=== PATIENT | female | born 1960 | race Caucasian/White ===

== ENCOUNTER 2019-03-25 08:39 | Emergency (ER) | payer OTHER, SELFPAY ==
[2019-03-25 08:40] VITALS: BP 155/89; BP 184/76; PULSE 85; PULSE 88; RESP 16; RESP 18; TEMP 36.2; O2SAT 96; O2SAT 97; BMI 33.2
--- NOTE | 2019-03-25 08:55 | ED.VISSUMM ---
- ER Visit Summary Date of Service: 03/25/19 Chief Complaint: Accidentally took an extra dose of her blood pressure medication History of Present Illness: The patient is a 58 F. Lisinopril 20 mg a day. Took her normal dose this morning had forgotten accidentally took a second dose. Physical Examination: Well-appearing middle-aged female. Vital signs are stable initial blood pressure initially high at 184/76. Heart rate 85. No distress. HEENT exam unremarkable. Moist mucous membranes. Neck nontender. Lungs clear to auscultation bilaterally. Heart regular rhythm no murmur. Abdomen is soft and nontender. Normal bowel sounds no peritoneal signs. Moving all 4 extremities. Calves are nontender without edema. Neurologically she is awake and alert with no focal motor deficits. 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 Normal dorsi plantar flexion. NIH score is 0. Test Results: Orthostatic vital signs are unremarkable. Emergency Department Course and Treatment: Clinically patient looks well. She will be observed in the ER with frequent blood pressure checks. Repeat exam patient is doing well her most recent blood pressure was 136/65. Treatment Plan: Return if any problems. Watch her blood pressure. Disposition: Discharge Impression: Accidental extra dose of blood pressure medication taken This note was generated with [employer] dictation software. It may contain incorrect words, spelling, and punctuation that were not noted in review of the chart prior to signing ED Disposition - Plan for ED Patient: Disposition: Home or Assisted Living Referrals: [facility] Doctor,Out of [Primary Care Provider] - As Needed Additional Instructions: Watch blood pressure today. Make sure you are drinking plenty of fluids. Return to ER if your blood pressure falls below 100.
--- NOTE | 2019-03-25 09:00 | ED.DEP ---
ED Disposition - Plan for ED Patient: Disposition: Home or Assisted Living Referrals: [facility],Out of [Primary Care Provider] - As Needed Additional Instructions: Watch blood pressure today. Make sure you are drinking plenty of fluids. Return to ER if your blood pressure falls below 100.
[2019-03-25 09:07] VITALS: BP 153/70; BP 153/79; BP 157/80; PULSE 78; PULSE 87; PULSE 91
[2019-03-25 09:58] VITALS: BP 136/65; PULSE 78; RESP 18; O2SAT 99
[2019-03-25 10:31] VITALS: BP 146/79; PULSE 78; RESP 19; O2SAT 99
== END 2019-03-25 10:31 | disposition home or self-care (01) ==
PROVIDERS: Emergency Provider Emergency Medicine
DX: T46.4X1A Poisoning by angiotensin-converting-enzyme inhibitors, accidental (unintentional), initial encounter (principal); Y92.9 Unspecified place or not applicable; I10 Essential (primary) hypertension; Z79.899 Other long term (current) drug therapy
CPT/HCPCS: 99284

== ENCOUNTER 2021-01-04 17:00 | Outpatient (RCR) | payer OTHER, SELFPAY ==
[2020-03-16 11:51] VITALS: BMI 33.6
--- NOTE | 2021-01-18 14:18 | HP.PT.NRP ---
STEPHY Nael RUBIO was seen in my office for initial evaluation on . The following Plan of Care was established for this patient: This patient was last seen in our office . Pertinent comments regarding their Physical therapy will appear below: Dry Needling- self pay At this point I will be discontinuing this patient from physical therapy. I would be happy to see this patient again in the future if found appropriate by the physician. Thank you! KRISTINE HoskinsT
== END 2021-01-04 19:00 | disposition home or self-care (01) ==
LOC: PT 17:00
DX: R69 Illness, unspecified (principal)

== ENCOUNTER → 2021-01-25 16:39 | Outpatient (CLI) | payer OTHER, SELFPAY ==
[2020-03-16 11:51] VITALS: BMI 33.6
--- NOTE | 2021-01-25 16:41 | RAD_ITS ---
STUDY: X-RAY - PELVIS AND RIGHT HIP REASON FOR EXAM: Right hip pain. TECHNIQUE: 2 views of the pelvis and hip. COMPARISON: None. FINDINGS: Normal visualized soft tissue structures. There is mild enthesopathy of the right iliac wing. Otherwise, unremarkable bilateral iliac wings, sacroiliac joints and visualized sacrum. Normal bilateral superior and inferior pubic rami. Normal pubic symphysis. Normal bilateral ischial tuberosities. There are small marginal osteophytes of the right femoral head, severe joint space narrowing of the right hip joint and subchondral eburnation of the right superior femoral head and adjacent acetabulum. There are also degenerative changes of the left hip joint. RAD/HIP, UNI W/ Pelvis 2-3 Views IMPRESSION: Right hip arthrosis. Electronically Signed: Kamaljit Bryant MD at 15:00 EDT Tel , Service support ,
--- NOTE | 2021-01-25 16:41 | RAD_ITS ---
STUDY: X-RAY - LUMBAR SPINE REASON FOR EXAM: Female, 60 years old. Back pain TECHNIQUE: 5 view(s) of the lumbar spine were obtained. COMPARISON: None FINDINGS: Normal lumbar lordosis. Mild levoscoliosis centered at L3. 5 mm of anterolisthesis of L4 on L5. There is multilevel endplate spondylosis of the lumbar vertebrae. There is multi-level degenerative disc disease with multi-level disc space narrowing. The soft tissue structures are unremarkable. RAD/L/S Spine Min 4 Views IMPRESSION: Mild levoscoliosis with diffuse degenerative disc disease in 5 mm of anterolisthesis of L4 on L5. Electronically Signed: Flash Lawton MD at 13:30 EDT Tel , Service support ,
== END ==
PROVIDERS: PCP Student in an Organized Health Care Education/Training Program; Referring Provider Chiropractor; Visit Provider Chiropractor
DX: M25.551 Pain in right hip (principal); M99.03 Segmental and somatic dysfunction of lumbar region
CPT/HCPCS: 72110; 73502

== ENCOUNTER 2021-01-26 16:30 | Outpatient (RCR) | payer OTHER, SELFPAY ==
[2020-03-16 11:51] VITALS: BMI 33.6
--- NOTE | 2021-01-07 18:18 | HP.PTEVAL ---
Patient's Visit Information STEPHY RUBIO is a 60 year old F referred to Physical Therapy by Dr. Jama Nascimento DO with a diagnosis of hip pain. Date of Evaluation: 01/07/21 Physical Therapist: Saman Rebollar, ZAIRE, OCS, CSCS - Visit Plan Frequency: 2x /Week Duration: 4 Weeks Plan: soft tissue to piriformis. increase hip and core strength, improve balance, improve flexibility. IE HEP: bridges, seated piriformis stretch - Subjective Pt reports over the summer she was lifting rock with at heard, and may have aggrevated it more. Pt reports that she has to lift leg into car. Has been going on for a while (years and year). cortizone shot a long time ago and doesnt think it helped. Pt reports that she does yoga at night and that seems to help. Pt has 4 flights of stairs in her house and that can aggrate it. She tries to roll on roller but doesnt seem to help. Pt does massage therapy every 2-3 weeks. got it done this monday. goes to chiropractor. pt believes dry needling is not helping. Pain: 7/10 all day today. shooting sharp pain. Pt reports pain in R hip radiates into groin and knee. allevaties: 3-4/10 sitting, laying on stomach. worse: 9-10/10 walking long distances, biking, stairs if she does it a lot. sleep: stomach sleeper, hurts if she is laying on side, some trouble. meds: ibuprophen (some relief). PMHx: high BP and cholestrol, hestroctomy (had to rehab after d/t being on table for too long and unable to walk- 20 years ago). 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 palpation: painful along IT band and piriformis R. stairs: recip with 1 HR, slight increase in pain with ascending. HR/TR: able without pain. SLS: 3 seconds on R side. Gait: R+ mild [place]. Strength: hip: flex 4-/5, abd/add: 4/5, ER: 4/5, IR: 4-/5 with pain on R. knee: flex/ext: 4/5 ankle: DF/PF: 4+/5. ROM: hip/knee/ankle: WFL spine: SB/rotation R: WFL with some increase in tightness, flex/ext: WFL. flexiblity: hamstring: moderate, gastro: mild. SHIKHA+, FADER +. Saman Rebollar is supervising therapist during this evaluation and approved all notes and POC - Goals Goal 1:: Pt will be I with HEP and progression Goal Time Frame: 4-6 Weeks Goal 2:: Pt will demonstrate improve R hip strength to 5/5 in order to perform I functional mobility Goal 3:: Pt will demonstrate improve SLS balance to >10 seconds on R LE in order to promote increase stability Goal Time Frame: 4-6 Weeks - Rehabilitation Potential Physical Therapy Diagnosis: Pt presents with decreased strength, balance, flexibilty impacting ability to perform I functional mobility. Rehabilitation Potential: Good - Anticipated Interventions Patient/Client Instruction: Educate patient on: Plan of Care For the Purpose of:: To improve muscle performance and motor function Therapeutic Exercise to Include: Strength training, Endurance training, Balance training, Coordination, Agility training, Body mechanics, Postural training, Flexibilty training, Dynamic Lumbar Stabilization For the Purpose of:: To improve muscle performance and motor function, To improve performance and independence with ADL's IF ES: Yes Cryotherapy (ice pack, ice massage): Yes Thermo therapy (hot pack): Yes Ultrasound (thermal/non thermal): Yes Thank you for the opportunity to evaluate your patient. For Medicare and Medicare HMO plans, please review the plan of care and approve it. It will need to be FAXED BACK to us at [phone] for Medicare purposes. For Medicare only, by signing this I certify the plan of care. Please let me know if there are questions or concerns regarding this plan of care. Physician Signature: Date:
--- NOTE | 2021-02-04 16:12 | HP.PT.NRP ---
STEPHY RUBIO was seen in my office for initial evaluation on 01/07/21. The following Plan of Care was established for this patient: Initial Frequency: 2x /Week Initial Duration: 4 Weeks Patient/Client Instruction: Educate patient on: Plan of Care For the Purpose of:: To improve muscle performance and motor function Therapeutic Exercise to Include: Strength training, Endurance training, Balance training, Coordination, Agility training, Body mechanics, Postural training, Flexibilty training, Dynamic Lumbar Stabilization For the Purpose of:: To improve muscle performance and motor function, To improve performance and independence with ADL's IF ES: Yes Cryotherapy (ice pack, ice massage): Yes Thermo therapy (hot pack): Yes Ultrasound (thermal/non thermal): Yes This patient was last seen in our office . Pertinent comments regarding their Physical therapy will appear below: Patient reports that she is worse and the pain is now radiating further down her leg- sees MD tomorrow- discharge from PT at this time. At this point I will be discontinuing this patient from physical therapy. I would be happy to see this patient again in the future if found appropriate by the physician. Thank you! KRISTINE HoskinsT
== END 2021-01-26 19:00 | disposition home or self-care (01) ==
LOC: PT 16:30
PROVIDERS: PCP Student in an Organized Health Care Education/Training Program; Referring Provider Student in an Organized Health Care Education/Training Program; Visit Provider Student in an Organized Health Care Education/Training Program
DX: M76.891 Other specified enthesopathies of right lower limb, excluding foot (principal); M76.892 Other specified enthesopathies of left lower limb, excluding foot; M25.552 Pain in left hip; M25.551 Pain in right hip
CPT/HCPCS: 97014; 97035; 97110; 97162; 97164; 97530; G0283

== ENCOUNTER → 2021-04-08 07:56 | Outpatient (CLI) | payer OTHER, SELFPAY ==
[2020-03-16 11:51] VITALS: BMI 33.6
--- NOTE | 2021-04-08 08:11 | EKG12_ITS ---
Test Reason : PREOP Blood Pressure : / mmHG Vent. Rate : 084 BPM Atrial Rate : 084 BPM P-R Int : 160 ms QRS Dur : 090 ms QT Int : 378 ms P-R-T Axes : 054 -03 018 degrees QTc Int : 446 ms Somatic/Motion Artifact Normal sinus rhythm Poor R wave progression Confirmed by BLANKA GALVEZ, ROBSON ([id number]), plant control aide CHONG DENNY ([id number]) on 04/09/2021 10:31:38 AM Referred By: Raghavendra Gongora Confirmed By:ROBSON MOSCOSO MD
--- NOTE | 2021-04-08 08:25 | RAD_ITS ---
STUDY: X-RAY CHEST REASON FOR EXAM: Female, 60 years old. PRE OP TECHNIQUE: PA and lateral views of the chest. COMPARISON: None. FINDINGS: The lungs are clear and expanded. There is no demonstrated pleural abnormality. Normal size heart. Normal mediastinum and tate. Normal visualized pulmonary arteries. Normal visualized aortic arch and descending thoracic aorta. Normal visualized thoracic spine. Normal visualized ribs, clavicles, and shoulders. There is no demonstrated abnormality of the visualized soft tissue structures of the upper abdomen. RAD/Chest PA and Lateral IMPRESSION: Normal x-ray examination of the chest. Electronically Signed: Flash Lawton MD at 7:40 EDT Tel , Service support ,
[2021-04-08 09:22] LABS: Hemoglobin 14.4 g/dL (12.0-15.0); Mean Corpuscular Volume 90.5 fL (81-99); Mean Platelet Vol. 10.8 fl (6.2-12.0); Platelet Count 274 K/mm3 (150-450); RBC Distribution Width CV 11.9 % (11.6-14.6); RBC Distribution Width SD 39.7 fl (35.1-43.9); Red Blood Count 4.97 M/mm3 (4.2-5.4); White Blood Count 6.9 K/mm3 (4.4-11.0)
[2021-04-08 09:59] LABS: Anion Gap 4 (5-15); BUN 17 mg/dL (7-18); BUN/Creat Ratio 22.9 RATIO (10-20); Chloride 107 mmol/L (98-107); Creatinine, Serum 0.74 mg/dL (0.55-1.02); EST Glomerular Filtration Rate 84 mL/min (>60); Est Glom Filt Rate - Afr Amer 102 mL/min (>60); Glucose 73 mg/dL (74-106); Potassium 3.9 mmol/L (3.5-5.1); Sodium Level 141 mmol/L (136-145)
== END ==
PROVIDERS: Physician Assistant; PCP Student in an Organized Health Care Education/Training Program; Referring Provider Orthopaedic Surgery; Visit Provider Orthopaedic Surgery
DX: Z20.822 Contact with and (suspected) exposure to COVID-19 (principal); Z01.812 Encounter for preprocedural laboratory examination; Z01.810 Encounter for preprocedural cardiovascular examination; Z01.811 Encounter for preprocedural respiratory examination; I10 Essential (primary) hypertension
CPT/HCPCS: 36415; 71046; 80048; 85027; 87426; 93005; C9803

== ENCOUNTER → 2021-04-16 | Outpatient (CLI) | payer OTHER, SELFPAY ==
[2020-03-16 11:51] VITALS: BMI 33.6
--- NOTE | 2021-04-16 09:00 | HIP_PTH ---
PATIENT: STEPHY RUBIO LOC: [facility] U#:[id number] AGE/SX: 60/F ROOM: RE04/16/[address]: Dr. Raghavendra Gongora MD : 1960 BED: DIS: 04/16/2021 SPEC #: [id number] RECD: 04/16/21 10:01 STATUS: DEJAH REJohn #: [id number] JANET: 04/16/21 09:[address]: Raghavendra Gongora DEPT: SURGICAL PATHOLOGY RECD BY: Genesis Blair ENTERED: 04/16/21 11:12 SP TYPE: TOTAL HIP OTHR DR: Dr. Jama Nascimento, [facility] Tissues: Hip, NOS Procedures: Decalcification bone/plaque Surgery Specimen Level IV HEADER OPERATION: Right total hip PRE-OP DIAGNOSIS: Osteoarthritis TISSUE SUBMITTED: Right femoral head MICROSCOPIC DIAGNOSIS Right femoral head, total hip replacement/resection: Femoral head with degenerative osteoarthritic changes. Fragments of fibroadipose tissue, fibroconnective tissue and reactive synovial tissue with focal mild chronic inflammation. EDUARDO:chandana 04/21/2021 MICROSCOPIC DESCRIPTION Slides are reviewed. GROSS DESCRIPTION Received is one container designated bone and soft tissue, right femoral head. The specimen consists of a abdalla femoral head with portion of femoral neck. The femoral head measures 4.5 x 4.5 x 3.5 cm and the femoral neck measures up to 2.5 cm in length. The articular surface displays prominent osteophyte formation, eburnation and bone erosion. Also present in the specimen container are multiple irregular fragments of bone reamings and pink-yellow soft tissue measuring in aggregate 9 x 9.5 x 3 cm. Health Services Administrator sections are submitted in two cassettes as follows: 1 - soft tissue, 2 - bone after decalcification. / EDUARDO:chandana 04/16/21 TC:5 CPT: 79744, [id number]
== END | disposition home or self-care (01) ==
LOC: LABSPEC 10:19
PROVIDERS: PCP Student in an Organized Health Care Education/Training Program; Referring Provider Orthopaedic Surgery; Visit Provider Orthopaedic Surgery
DX: M19.90 Unspecified osteoarthritis, unspecified site (principal)
CPT/HCPCS: 88305; 88311

== ENCOUNTER 2022-10-05 06:23 | Emergency (ER) | payer OTHER, SELFPAY ==
[2022-10-05 06:24] VITALS: BP 166/67; PULSE 101; RESP 18; TEMP 37; O2SAT 96; BMI 33.3
[2022-10-05 06:50] LABS: Mucous, Urine 0 SEEN /hpf (<or=2+)
[2022-10-05 06:58] LABS: Color, Urine Amber (Yellow); Glucose, Dipstick Normal (Normal); Ketone-Dipstick Negative (Negative); Leukocyte Esterase-Dipstick 500 /ul (Negative); Nitrite-Dipstick Positive (Negative); Occult Blood-Urine 250 /ul (Negative); Protein-Dipstick 500 mg/dl (Negative); Urine Clarity Turbid (Clear); Urine Urobilinogen 1 mg/dl (Normal)
[2022-10-05 07:01] LABS: Urine Bilirubin Dipstick 3 mg/dL (Negative)
[2022-10-05 07:15] LABS: Bacteria 1+ /hpf (None Seen); Red Blood Cells-Urine > 100 SEEN /hpf (0-5); Squamous Epithelial Cells - UA 0-5 SEEN /hpf (5-10); White Blood Cells 10-25 SEEN /hpf (0-5)
--- NOTE | 2022-10-05 07:18 | ED.VIS.FEGU ---
HPI HPI - Female History of Present Illness Chief Complaint: Complaint Narrative Narrative: 61-year-old female with history of urinary tract infections presenting with dysuria, hematuria. Started this morning. She states he had some back pain a couple days ago which is resolved. She states she also has a history of kidney stones but does not feel similar. Patient does not have any flank pain today. She is not had a fever but complains of body aches and chills. This is consistent with previous UTIs. Patient states she had 1 Macrobid leftover which is what she normally gets. She took it this morning but vomited. She does not have any abdominal pain. No diarrhea or constipation. [facility] Medical History Arthritis Environmental allergies High blood triglycerides High cholesterol Hypertension Hypoglycemia Home Medications ezetimibe 10 mg tablet 10 mg PO DAILY 10/24/16 [History Last Taken Unknown] lisinopril 20 mg tablet 20 mg PO DAILY 10/24/16 [History Last Taken Unknown] cholecalciferol (vitamin D3) 25 mcg (1,000 unit) capsule 25 mcg PO DAILY 02/05/21 [History Last Taken Unknown] omega-3 fatty acids 1,000 mg capsule (Fish Oil Concentrate) 1,000 mg PO DAILY 02/05/21 [History Last Taken Unknown] red yeast rice 600 mg capsule 600 mg PO DAILY 02/05/21 [History Last Taken Unknown] turmeric 400 mg capsule mg PO 02/05/21 [History Last Taken Unknown] meloxicam 15 mg tablet 15 mg PO DAILY #30 tabs 02/16/21 [Rx Last Taken Unknown] hydrocodone-acetaminophen 5-325mg 5mg-325mg 1 tab PO Q6H PRN pain 2 days #6 tabs 10/05/22 [Rx Last Taken Unknown] nitrofurantoin monohydrate/macrocrystals 100 mg capsule (Macrobid) 100 mg PO Q12H 7 days #14 caps 10/05/22 [Rx Last Taken Unknown] ondansetron 4 mg disintegrating tablet 4 mg PO Q8H PRN nausea and vomiting #10 tabs 10/05/22 [Rx Last Taken Unknown] Allergy/AdvReac Type Severity Reaction Status Date / Time azithromycin Allergy Other Verified 10/05/22 06:27 [From Zithromax Z-Chris] ciprofloxacin Allergy Other Verified 10/05/22 06:27 Penicillins [PCN] Allergy Hives Verified 10/05/22 06:27 Family History Mother Arthritis Father Arthritis Other Cancer Hypertension Surgical History History of hysterectomy Social History Smoking Status: Never smoker alcohol intake: current alcohol intake frequency: a few times a month substance use type: does not use what type of physical activity do you participate in: yoga frequency: 3-4 times per week ROS ROS ED Constitutional Constitutional ED: Reports chills; Denies fever(s) Eyes Eyes: Denies change in vision ENT ENT ED: Denies rhinorrhea or sore throat Cardiovascular Cardiovascular: Denies chest pain or palpitations Respiratory/Chest Respiratory/Chest: Denies cough, dyspnea or dyspnea on exertion Gastrointestinal Gastrointestinal: Reports nausea and vomiting; Denies abdominal pain or constipation Genitourinary Genitourinary ED: Denies dysuria or hematuria Musculoskeletal Musculoskeletal: Reports myalgias; Denies arthralgias Integumentary Denies abscess or Abrasions Neurologic Neurologic: Denies headache(s) or paresthesias Psychiatric Psychiatric: Denies anxiety or depression EXAM Physical Exam Const Vital Signs: 10/05/22 06:24 Temperature 98.6 F Temperature Source Temporal Pulse Rate 101 H Respiratory Rate 18 Blood Pressure 166/67 H Blood Pressure Mean 100 Pulse Ox 96 Oxygen Delivery Method Room Air Positive well nourished General Appearance ED: Negative for pallor HEENT Reports moist mucous membranes Eyes PERRL and EOMs intact bilaterally Resp normal respiratory effort Back/Spine no CVA tenderness Neuro oriented x3 and CN's II-XII intact bilaterally Sensorium / Orientation: alert Motor Exam: strength 5/5 throughout Psych mental status grossly normal Skin General Skin Exam: Negative for jaundice or pallor MDM MDM MDM Narrative Medical decision making narrative: Well-appearing 61-year-old female with history of urinary tract infection. Her urinalysis is consistent with that today. She states that Macrobid typically will work for her. Although she is had chills and body ache she denies fever. She is well-appearing. Vital signs are stable and she is afebrile. Patient requests Macrobid for her UTI which was provided. She is already taking Pyridium. She states this is not significantly helping with the pain. She request something stronger. She was given 5 [place] for pain for home. She did not receive 1 here because she is driving. She was also given a prescription for Zofran to help with her nausea. Return precautions were discussed. Impression: 1. UTI 2. Nausea/vomiting Lab Data Attestation: I reviewed the patient's lab results. Labs: Laboratory Results - last 24 hr 10/05/22 06:44 Urine Color Jenn Urine Clarity Turbid Urine pH 5.0 Ur Specific [place] 1.020 Urine Protein 500 H Urine Glucose (UA) Normal Urine Ketones Negative Urine Occult Blood 250 H Urine Nitrite Positive H Urine Bilirubin 3 H Urine Urobilinogen 1 H Ur Leukocyte Esterase 500 H Urine RBC > 100 SEEN Urine WBC 10-25 SEEN Ur Squamous Epith Cells 0-5 SEEN Urine Bacteria 1+ Urine Mucus 0 SEEN Discharge Plan Triage Chief Complaint: Complaint ED Provider: Jonatan Solomon Dx/Rx/DC Orders Instructions: ED Cystitis Female Adult Prescriptions: New hydrocodone-acetaminophen 5-325 mg tablet 1 tab PO Q6H PRN (Reason: pain) 2 Days Qty: 6 0RF ondansetron 4 mg tablet,disintegrating 4 mg PO Q8H PRN (Reason: nausea and vomiting) Qty: 10 0RF nitrofurantoin monohyd/m-cryst [Macrobid] 100 mg capsule 100 mg PO Q12H 7 Days Qty: 14 0RF Rx Instructions: must administer with a meal/food No Action cholecalciferol (vitamin D3) 25 mcg (1,000 unit) capsule 25 mcg PO DAILY omega-3 fatty acids [Fish Oil Concentrate] 1,000 mg capsule 1,000 mg PO DAILY red yeast rice 600 mg capsule 600 mg PO DAILY Rx Instructions: give with meal/snack turmeric 400 mg capsule PO lisinopril 20 MG tablet 20 mg PO DAILY ezetimibe 10 MG tablet 10 mg PO DAILY meloxicam 15 mg tablet 15 mg PO DAILY Qty: 30 0RF Rx Instructions: Do not take in conjunction with other NSAIDs. Primary Care Provider: Jama Nascimento Referrals: Jama Nascimento, [Primary Care Provider] - Disposition Disposition: Home, Self Care
[2022-10-05] MEDS: Ondansetron ODT 4 MG Tablet PO (07:45)
[2022-10-05] MEDS: Nitrofurantoin Macrocrystals 100 MG Capsule PO (07:45)
== END 2022-10-05 07:47 | disposition home or self-care (01) ==
LOC: ED 07:44
PROVIDERS: Emergency Provider Student in an Organized Health Care Education/Training Program; PCP Student in an Organized Health Care Education/Training Program; Visit Provider Student in an Organized Health Care Education/Training Program
DX: N39.0 Urinary tract infection, site not specified (principal); R68.83 Chills (without fever); R11.2 Nausea with vomiting, unspecified; I10 Essential (primary) hypertension; R31.9 Hematuria, unspecified; E78.00 Pure hypercholesterolemia, unspecified
CPT/HCPCS: 81001; 87086; 87088; 87186; 99283

== ENCOUNTER 2023-05-06 08:31 | Emergency (ER) | payer OTHER, SELFPAY ==
[2023-05-06 08:31] VITALS: BP 157/79; PULSE 65; RESP 14; TEMP 36.2; O2SAT 99; BMI 33.1
--- NOTE | 2023-05-06 09:16 | CT_ITS ---
INDICATION: right flank pain EXAMINATION: CT ABDOMEN AND PELVIS WITHOUT CONTRAST - CT Abdomen And Pelvis W/O Contrast Injection TECHNIQUE: Helically acquired images were obtained of the abdomen and pelvis without oral or IV contrast. A radiation dose optimization technique was used for this scan. IV Contrast dosage and agent: None. Oral contrast: None. RADIATION DOSAGE (If Supplied By Facility): CTDIvol = ( 18.5 ) mGy, DLP = ( 901.37 ) mGycm COMPARISON: FINDINGS: LOWER CHEST: Bilateral basilar segment left lower lobe fibrosis. LIVER: Homogeneous. No focal mass. GALLBLADDER AND BILIARY TREE: No calcified gallstones. No gallbladder distension or wall edema. No intra- or extrahepatic biliary ductal dilation. PANCREAS: No focal cystic or solid mass. SPLEEN: Normal size without focal cystic or solid mass. ADRENAL GLANDS: No nodules. KIDNEYS AND URETERS: Posterior left mid pole 2 mm nonobstructing calculus, posterior left mid pole 4 mm nonobstructing calculus, lateral left mid pole 3 mm nonobstructing calculus, posterior left lower pole 0.3 and 0.2 cm nonobstructing calculi, left lower pole 4 mm nonobstructing calculus, left lower pole 5 and 3 mm nonobstructing calculi. Right kidney nonobstructing posterior right midpole calculus 5 mm. Moderate right hydronephrosis. This extends to the right UPJ at which site there is a 0.43 cm nonobstructing calculus. PERITONEUM: No ascites or free air. No other fluid collection. BOWEL: Moderate sigmoid diverticulosis. No diverticulitis. Stomach nondistended limiting evaluation. No evidence of acute appendicitis. No stomach or bowel distension. No focal inflammatory change. LYMPH NODES: No enlarged mesenteric or retroperitoneal lymph nodes. VESSELS: Aorta is non-dilated. URINARY BLADDER: Unremarkable. REPRODUCTIVE ORGANS: Atrophic uterus versus hysterectomy. ABDOMINAL WALL: No discrete abdominal or pelvic wall hernia. BONES: Status post right hip arthroplasty. CT/Abdomen/Pelvis without Cont IMPRESSION: Moderate right hydronephrosis with obstructing calculus 0.43 cm a right UPJ. Bilateral nonobstructing renal calculi as above. Sigmoid diverticulosis. Atrophic uterus versus hysterectomy. Right hip arthroplasty. Electronically Signed: Aj Loco MD, RUSLAN at 10:02 EDT ,
[2023-05-06 09:25] LABS: Absolute Lymphocyte Count 2.23 X10^3/uL (0.83-4.51); Basophil# 0.05 X10^3/uL; Basophil% 0.5 % (0-1); Eosinophil# 0.04 X10^3/uL; Eosinophils% 0.4 % (0-5); Hematocrit 49.7 % (37-47); Lymphocyte # 2.23 X10^3/ul (0.83-4.51); Lymphocyte % 22.6 % (19-41); Mean Corp Hgb Conc 30.2 g/dL (32-36); Mean Corpuscular Hgb 28.9 pg (27.0-32.0); Mean Corpuscular Volume 95.8 fL (81-99); Mean Platelet Vol. 10.9 fl (6.2-12.0); Monocyte# 0.55 X10^3/uL; Monocyte% 5.6 % (0-10); NRBC Flagged by Analyzer 0 % (0-5); Neutrophil # 6.98 X10^3/uL (2.7-7.7); Neutrophil % 70.6 % (47-70); Platelet Count 242 K/mm3 (150-450); RBC Distribution Width CV 11.8 % (11.6-14.6); RBC Distribution Width SD 41.5 fl (35.1-43.9); Red Blood Count 5.19 M/mm3 (4.2-5.4); White Blood Count 9.9 K/mm3 (4.4-11.0)
--- NOTE | 2023-05-06 09:30 | ED.VIS.FEGU ---
HPI HPI - Female History of Present Illness Chief Complaint: Flank Pain Narrative Narrative: 62-year-old female presenting with right flank pain, nausea, vomiting. Flank pain radiates into the inguinal region on the right. Onset was 5:30 AM. She has not been able to hold down any fluids. Does not have any diarrhea. No constipation. No fevers or chills. She states he has a history of kidney stones and this feels similar. [facility] Medical History (Updated 05/06/23 @ 10:[address] Jonatan Solomon, DO) Arthritis Environmental allergies High blood triglycerides High cholesterol Hypertension Hypoglycemia Home Medications ezetimibe 10 mg tablet 10 mg PO DAILY 10/24/16 [History Last Taken Unknown] lisinopril 20 mg tablet 20 mg PO DAILY 10/24/16 [History Last Taken Unknown] cholecalciferol (vitamin D3) 25 mcg (1,000 unit) capsule 25 mcg PO DAILY 02/05/21 [History Last Taken Unknown] omega-3 fatty acids 1,000 mg capsule (Fish Oil Concentrate) 1,000 mg PO DAILY 02/05/21 [History Last Taken Unknown] red yeast rice 600 mg capsule 600 mg PO DAILY 02/05/21 [History Last Taken Unknown] turmeric 400 mg capsule mg PO 02/05/21 [History Last Taken Unknown] meloxicam 15 mg tablet 15 mg PO DAILY #30 tabs 02/16/21 [Rx Last Taken Unknown] hydrocodone-acetaminophen 5-325mg 5mg-325mg 1 tab PO Q6H PRN pain 2 days #6 tabs 10/05/22 [Rx Last Taken Unknown] nitrofurantoin monohydrate/macrocrystals 100 mg capsule (Macrobid) 100 mg PO Q12H 7 days #14 caps 10/05/22 [Rx Last Taken Unknown] ondansetron 4 mg disintegrating tablet 4 mg PO Q8H PRN nausea and vomiting #10 tabs 10/05/22 [Rx Last Taken Unknown] phenazopyridine 200 mg tablet (Pyridium) 200 mg PO BID PRN PRN Pain #10 tabs 10/05/22 [Rx Last Taken Unknown] ondansetron 4 mg disintegrating tablet 4 mg PO Q8H PRN PRN Nausea #20 tabs 05/06/23 [Rx Last Taken Unknown] oxycodone 5 mg tablet 5 mg PO Q6H PRN pain 3 days #12 tabs 05/06/23 [Rx Last Taken Unknown] sulfamethoxazole 800 mg-trimethoprim 160 mg tablet (Bactrim DS) 1 tab PO BID #20 tabs 05/06/23 [Rx Last Taken Unknown] Allergy/AdvReac Type Severity Reaction Status Date / Time azithromycin Allergy Other Verified 05/06/23 08:33 [From Zithromax Z-Chris] ciprofloxacin Allergy Other Verified 05/06/23 08:33 Penicillins [PCN] Allergy Hives Verified 05/06/23 08:33 Family History Mother Arthritis Father Arthritis Other Cancer Hypertension Surgical History History of hysterectomy Social History Smoking Status: Never smoker alcohol intake: current alcohol intake frequency: a few times a month substance use type: does not use what type of physical activity do you participate in: yoga frequency: 3-4 times per week ROS ROS ED Constitutional Constitutional ED: Denies chills, fever(s) or sweats Eyes Eyes: Denies blurry vision or change in vision ENT ENT ED: Denies ear pain or sore throat Cardiovascular Cardiovascular: Denies chest pain, palpitations or racing heartbeat Respiratory/Chest Respiratory/Chest: Denies cough, dyspnea or sputum Gastrointestinal Gastrointestinal: Reports nausea, vomiting and other Details: Right flank pain ; Denies abdominal pain, constipation or diarrhea Genitourinary Genitourinary ED: Denies dysuria, hematuria or urinary frequency Musculoskeletal Musculoskeletal: Denies arthralgias, myalgias or neck pain Integumentary Denies abscess, Abrasions or rash Neurologic Neurologic: Denies headache(s), paresthesias or weakness Psychiatric Psychiatric: Denies anxiety, depression, suicidal ideation or suicidal thoughts Endocrine Endocrinology: Denies polydipsia or polyuria EXAM Physical Exam Const Vital Signs: 05/06/23 08:31 05/06/23 08:31 Temperature 97.2 F L Temperature Source Temporal Pulse Rate 65 Respiratory Rate 14 Respiratory Effort Normal Non-Labored Respiratory Pattern Normal Blood Pressure 157/79 H Blood Pressure Mean 105 Pulse Ox 99 Oxygen Delivery Method Room Air Positive well nourished General Appearance ED: NAD HEENT Reports moist mucous membranes Resp normal respiratory effort Cardio regular rate and regular rhythm GI normal to inspection, nondistended, normoactive bowel sounds Back/Spine General Back: CVA tenderness right Extremity normal to inspection Neuro oriented x3 and CN's II-XII intact bilaterally Sensorium / Orientation: alert Motor Exam: strength 5/5 throughout Psych mental status grossly normal Skin no rashes or lesions noted and no wounds MDM MDM MDM Narrative Medical decision making narrative: 61-year-old female present pain. Differential includes UTI pyelonephritis, kidney stone, ovarian torsion, ovarian cyst, situs, colitis. CBC to assess white blood cell count, hemoglobin, platelets. BMP to assess renal function, electrolytes. Urinalysis to assess for infection or occult blood. Patient medicated with IV fluids, morphine, Zofran, Toradol. She is feeling improved. CT of the abdomen pelvis was obtained which shows a 0.43 cm right UPJ stone with mild hydroureter and hydronephrosis. CBC has no significant leukocytosis. H&H are stable. Electrolytes normal. Renal function normal. Patient will be given follow-up with Dr. Lm Browning. She started on oxycodone, Zofran. She states that she is going out of town to [place] and she wants to have antibiotics just in case she develops a UTI. I started her on Bactrim. Return precautions were discussed. Impression: 1. Nausea/vomiting 2. Right-sided UPJ stone 3. Right-sided hydronephrosis Lab Data Attestation: I reviewed the patient's lab results. Labs: Laboratory Results - last 24 hr 05/06/23 05/06/23 05/06/23 09:04 09:04 09:28 WBC 9.9 RBC 5.19 Hgb 15.0 Hct 49.7 H MCV 95.8 MCH 28.9 MCHC 30.2 L RDW Std Deviation 41.5 RDW Coeff of Carlos 11.8 Plt Count 242 MPV 10.9 Immature Gran % (Auto) 0.300 Neut % (Auto) 70.6 H Lymph % (Auto) 22.6 [place] % (Auto) 5.6 Eos % (Auto) 0.4 Baso % (Auto) 0.5 Absolute Neuts (auto) 7.0 Absolute Lymphs (auto) 2.23 Nucleated RBC % 0 Sodium 142 Potassium 4.0 Chloride 114 H Carbon Dioxide 21.0 Anion Gap 7 BUN 17 Creatinine 0.94 Estim Creat Clear Calc 50.67 Est GFR (MDRD) Af Amer 77 Est GFR (MDRD) Non-Af 64 BUN/Creatinine Ratio 18.1 Glucose 147 H Calcium 9.2 Urine Color Yellow Urine Clarity Sl. Cloudy Urine pH 6.0 Ur Specific [place] 1.020 Urine Protein 30 H Urine Glucose (UA) Normal Urine Ketones Negative Urine Occult Blood 250 H Urine Nitrite Negative Urine Bilirubin Negative Urine Urobilinogen Normal Ur Leukocyte Esterase 500 H Urine RBC > 100 SEEN Urine WBC 5-10 SEEN Ur Squamous Epith Cells 5-10 SEEN Urine Bacteria 2+ Urine Mucus 0 SEEN Radiography Diagnostic Testing: Clinical Impression(s) from Imaging Studies Abdomen/Pelvis CT 05/06/23 09:16 IMPRESSION: Moderate right hydronephrosis with obstructing calculus 0.43 cm a right UPJ. Bilateral nonobstructing renal calculi as above. Sigmoid diverticulosis. Atrophic uterus versus hysterectomy. Right hip arthroplasty. Electronically Signed: Aj Loco MD, RUSLAN at 10:02 EDT Reading Location ID and State: [facility] / [place] Tel , Service support , Discharge Plan Triage Chief Complaint: Flank Pain ED Provider: Jonatan Solomon Dx/Rx/DC Orders Instructions: ED Pyelonephritis, Female (Adult), ED Kidney Stone w/ Colic Prescriptions: New oxycodone 5 mg tablet 5 mg PO Q6H PRN (Reason: pain) 3 Days Qty: 12 0RF ondansetron 4 mg tablet,disintegrating 4 mg PO Q8H PRN PRN (Reason: Nausea) Qty: 20 0RF sulfamethoxazole-trimethoprim [Bactrim DS] 800-160 mg tablet 1 tab PO BID Qty: 20 0RF No Action cholecalciferol (vitamin D3) 25 mcg (1,000 unit) capsule 25 mcg PO DAILY omega-3 fatty acids [Fish Oil Concentrate] 1,000 mg capsule 1,000 mg PO DAILY red yeast rice 600 mg capsule 600 mg PO DAILY Rx Instructions: give with meal/snack turmeric 400 mg capsule PO lisinopril 20 MG tablet 20 mg PO DAILY ezetimibe 10 MG tablet 10 mg PO DAILY hydrocodone-acetaminophen 5-325 mg tablet 1 tab PO Q6H PRN (Reason: pain) 2 Days Qty: 6 0RF ondansetron 4 mg tablet,disintegrating 4 mg PO Q8H PRN (Reason: nausea and vomiting) Qty: 10 0RF nitrofurantoin monohyd/m-cryst [Macrobid] 100 mg capsule 100 mg PO Q12H 7 Days Qty: 14 0RF Rx Instructions: must administer with a meal/food phenazopyridine [Pyridium] 200 mg tablet 200 mg PO BID PRN PRN (Reason: Pain) Qty: 10 0RF meloxicam 15 mg tablet 15 mg PO DAILY Qty: 30 0RF Rx Instructions: Do not take in conjunction with other NSAIDs. Primary Care Provider: Jama Nascimento Referrals: Keiry Auguste MD [Med Staff - Active Staff] - As soon as possible Jama Nascimento DO [Primary Care Provider] - Disposition Disposition: Home, Self Care
[2023-05-06] MEDS: Ketorolac 15 MG/ML Vial IV (09:34)
[2023-05-06] MEDS: Ondansetron 4 MG/2 ML Vial IV (09:35)
[2023-05-06] MEDS: Morphine 4 MG/ML Syringe IV (09:35)
[2023-05-06 09:36] LABS: Mucous, Urine 0 SEEN /hpf (<or=2+)
[2023-05-06 09:39] LABS: Anion Gap 7 (5-15); BUN 17 mg/dL (7-18); BUN/Creat Ratio 18.1 RATIO (10-20); Calcium,Total 9.2 mg/dL (8.5-10.1); Chloride 114 mmol/L (98-107); Creatinine, Serum 0.94 mg/dL (0.55-1.02); EST Glomerular Filtration Rate 64 mL/min (>60); Est Glom Filt Rate - Afr Amer 77 mL/min (>60); Estimated Creatinine Clearance 50.67 ml/min; Glucose 147 mg/dL (74-106); Sodium Level 142 mmol/L (136-145)
[2023-05-06 09:42] LABS: Color, Urine Yellow (Yellow); Glucose, Dipstick Normal (Normal); Ketone-Dipstick Negative (Negative); Leukocyte Esterase-Dipstick 500 /ul (Negative); Nitrite-Dipstick Negative (Negative); Occult Blood-Urine 250 /ul (Negative); Protein-Dipstick 30 mg/dl (Negative); Urine Bilirubin Dipstick Negative (Negative); Urine Clarity Sl. Cloudy (Clear); Urine Urobilinogen Normal (Normal)
[2023-05-06 10:02] LABS: Bacteria 2+ /hpf (None Seen); Red Blood Cells-Urine > 100 SEEN /hpf (0-5); Squamous Epithelial Cells - UA 5-10 SEEN /hpf (5-10); White Blood Cells 5-10 SEEN /hpf (0-5)
[2023-05-06 11:11] VITALS: BP 140/61; PULSE 65; RESP 17; O2SAT 96
== END 2023-05-06 11:12 | disposition home or self-care (01) ==
PROVIDERS: Emergency Provider Student in an Organized Health Care Education/Training Program; PCP Student in an Organized Health Care Education/Training Program; Visit Provider Student in an Organized Health Care Education/Training Program
DX: R11.2 Nausea with vomiting, unspecified (principal); N13.2 Hydronephrosis with renal and ureteral calculous obstruction
CPT/HCPCS: 74176; 80048; 81001; 85025; 96374; 96375; 99283; J7030; A4216; J2405

== ENCOUNTER → 2023-05-17 | Outpatient (CLI) | payer OTHER, SELFPAY ==
--- NOTE | 2023-05-17 13:04 | RAD_ITS ---
INDICATION: KIDNEY CALCULUS EXAMINATION/TECHNIQUE: X-RAY - XR Abdomen 1 View COMPARISON: CT abdomen and pelvis 05/06/2023. XRAY pelvis 01/25/2021. FINDINGS: Several small calcifications overlie the renal shadows consistent with renal calculi shown on the prior CT. The largest calculus lower pole right kidney is approximately 4 mm. The previously noted right ureteral calculus on the recent CT is not identified. Stool and bowel gas obscure portions of the abdomen especially the lower abdomen and pelvis. No bowel obstruction. Surgical hardware in the right hip. Degenerative changes of the left hip and lumbar spine. Elevated right hemidiaphragm. The lung bases are not well assessed. RAD/Abdomen Single View IMPRESSION: Bilateral renal calculi. . Electronically Signed: Fay Zamora MD at 23:46 EDT ,
== END | disposition home or self-care (01) ==
LOC: MTRAD 13:02
PROVIDERS: PCP Student in an Organized Health Care Education/Training Program; Referring Provider Urology; Visit Provider Urology
DX: N20.0 Calculus of kidney (principal)
CPT/HCPCS: 74018

== ENCOUNTER → 2023-05-23 | Outpatient (CLI) | payer OTHER, SELFPAY ==
--- NOTE | 2023-05-23 17:43 | CT_ITS ---
EXAM: CT ABDOMEN AND PELVIS WITHOUT INTRAVENOUS CONTRAST CLINICAL INDICATION: KIDNEY STONE TECHNIQUE: Helically acquired images were obtained of the abdomen and pelvis without intravenous contrast. CTDIvol = ( 19.17 ) mGy, DLP = ( 876.49 ) mGycm This CT exam was performed using one or more of the following dose reduction techniques: automated exposure control, adjustment of the mA and/or kV according to patient size, and/or use of iterative reconstruction technique. COMPARISON: May 06, 2023 FINDINGS: LOWER THORAX: Pleural-parenchymal scarring at the lateral left base. Lung bases are otherwise clear. No cardiomegaly. No significant pericardial effusion. ABDOMEN: LIVER: Small cyst at the posterior segment of the right hepatic lobe. GALLBLADDER AND BILE DUCTS: Unremarkable. No calcified gallstones. No gallbladder distention or wall edema. No intra- or extrahepatic biliary ductal dilation. PANCREAS: Unremarkable. No focal cystic mass. SPLEEN: Unremarkable. Normal size without focal cystic or solid mass. ADRENALS: Unremarkable. No nodules. KIDNEYS AND URETERS: Redemonstration of moderate hydronephrosis secondary to an obstructing 4 mm calculus located just below the right UPJ in the proximal ureter which is unchanged from before. Redemonstration of bilateral nonobstructing renal calculi as above. Normal renal size and position. STOMACH AND BOWEL: Sigmoid diverticulosis. No acute diverticulitis. No colitis. No bowel obstruction. PELVIS: APPENDIX: No evidence of acute appendicitis. BLADDER: Unremarkable. REPRODUCTIVE: Unremarkable as visualized. No mass. ABDOMEN and PELVIS: INTRAPERITONEAL SPACE: Unremarkable. No ascites or other fluid collection. No free air. BONES/JOINTS: Right hip arthroplasty without complication. Hip changes of the pelvis and spine. Grade 1 degenerative disease at L3 on L4 and of L4 on L5. Other multilevel degenerative changes of the spine. No suspicious lytic or blastic abnormality. SOFT TISSUES: Unremarkable. No discrete abdominal or pelvic wall hernia. VASCULATURE: Unremarkable. Abdominal aorta is non-dilated. LYMPH NODES: Unremarkable. No enlarged lymph nodes. CT/Abdomen/Pelvis without Cont IMPRESSION: 1. Redemonstration of moderate hydronephrosis secondary to an obstructing 4 mm calculus located just below the right UPJ in the proximal ureter, which is unchanged from before. 2. Redemonstration of bilateral nonobstructing renal calyceal calculi. 3. No other change from before with no other acute disease. Electronically Signed: Naseem Ramirez MD at 2:14 EDT ,
== END | disposition home or self-care (01) ==
LOC: CT 17:39
PROVIDERS: PCP Student in an Organized Health Care Education/Training Program; Referring Provider Urology; Visit Provider Urology
DX: N20.2 Calculus of kidney with calculus of ureter (principal)
CPT/HCPCS: 74176

== ENCOUNTER 2023-06-15 11:58 | Day surgery (SDC) | payer OTHER, SELFPAY ==
[2023-06-15 12:28] VITALS: BP 147/78; PULSE 92; RESP 16; TEMP 36.8; O2SAT 97; BMI 32.6
[2023-06-15] MEDS: Cefazolin 2 GM in 0.9% Normal Saline 100 ML IV (13:52)
[2023-06-15 14:46] VITALS: BP 127/74; BP 147/78; PULSE 89; RESP 16; TEMP 36.8; O2SAT 93
--- NOTE | 2023-06-15 14:52 | DCINST_ITS ---
Discharge Instructions Diet Discharge Diet: No restrictions Activity Discharge Activity: Return to Normal Activity Dressing / Incision Call your doctor if you observe: Fever of 101 or Higher, Inability to urinate and Inability to have a bowel movement Follow Up Care Please Follow Up With: Keiry Auguste MD When: The office will contact the patient to make arrangements for follow-up Test Results: Test results from this visit will be discussed in further detail at your follow- up appointment, if applicable. Discharge Plan Admission Attending Provider: Keiry Auguste Primary Care Provider: Jama Nascimento Discharge Orders/Prescriptions Prescriptions: New oxycodone-acetaminophen [Percocet] 5-325 mg tablet 1 tab PO Q8H PRN (Reason: pain) 3 Days Qty: 10 0RF cephalexin [cephalexin] 500 mg capsule 500 mg PO Q12 3 Days Qty: 6 0RF Continued cholecalciferol (vitamin D3) 25 mcg (1,000 unit) capsule 25 mcg PO DAILY omega-3 fatty acids [Fish Oil Concentrate] 1,000 mg capsule 1,000 mg PO DAILY red yeast rice 600 mg capsule 600 mg PO DAILY Rx Instructions: give with meal/snack lisinopril 20 MG tablet 20 mg PO DAILY ezetimibe 10 MG tablet 10 mg PO DAILY fenofibrate nanocrystallized [Tricor] 48 mg tablet 48 mg PO DAILY niacin 500 mg tablet 500 mg PO DAILY vitamin Y87-cmdbt acid 2,500-400 mcg tablet,disintegrating 2 tab PO DAILY Referrals / Follow Up: Jama Nascimento DO [Primary Care Provider] - Disposition Disposition (needs filled in before D/C Order can be placed): Home, Self Care
--- NOTE | 2023-06-15 14:54 | PCM.OPRPT ---
Report of Operation Date of Procedure: 06/15/23 Pre-Operative Diagnosis: Right renal calculus, right ureteral calculus Post-Operative Diagnosis: Same, passed ureteral calculus Surgery/Procedure Performed:: Cystoscopy, right retrograde pyelogram, right renal extracorporal shockwave lithotripsy Surgeon: Keiry Auguste Type of Anesthesia: General Specimen's removed: None Description of Procedure: The patient is a 62-year-old female who presented to the office with a CT scan showing right proximal ureteral calculus with hydronephrosis in addition to another right lower pole renal stone. Informed consent was obtained. The patient was taken the operating room and placed on the operating room table. Anesthesia monitored the head, neck, airway, IV access and vital signs throughout the case. Once anesthesia was appropriately administered the patient was placed into dorsolithotomy position was prepped and draped in usual sterile fashion. The cystoscope was inserted through the urethra under direct visualization into the urinary bladder. Evaluation of the bladder mucosa revealed no evidence of mass, erythema, ulceration or foreign body. The right ureteral orifice was gently intubated with an 8 [place] cone-tip catheter and contrast was injected in retrograde fashion under fluoroscopic visualization. There were no filling defects or abnormalities identified throughout the length of the ureter which was in normal caliber and there was no evidence of hydronephrosis. At this time the bladder was emptied and the cystoscope was removed. The patient was positioned on the lithotripsy table. Her renal stone was easily identified. 2000 shocks were applied to the stone and it was no longer able to be visualized. At this time the case was concluded. The patient was awakened and taken to the recovery room in good condition, and there were no complications during this case. Complications None Admit VTE Documentation VTE Present on Admission: Yes VTE Mechan Device Prophylaxis: SCD's Reason prophylaxis not ordered:: Treatment Not Indicated
[2023-06-15 14:58] VITALS: BP 141/75; BP 147/78; PULSE 97; RESP 16; O2SAT 92
[2023-06-15 15:04] VITALS: BP 147/78; BP 151/71; PULSE 97; RESP 16; O2SAT 93
[2023-06-15 15:10] VITALS: BP 133/67; BP 147/78; PULSE 96; RESP 16; TEMP 36.6; O2SAT 97
[2023-06-15 15:18] VITALS: BP 147/78
== END 2023-06-15 16:31 | disposition home or self-care (01) ==
LOC: SDC 12:06 → AC 12:07
PROVIDERS: PCP Student in an Organized Health Care Education/Training Program; Referring Provider Urology; Visit Provider Urology
PROC: (CPT 50590; principal; 2023-06-15 13:30)
DX: N20.2 Calculus of kidney with calculus of ureter (principal); N39.41 Urge incontinence; N94.819 Vulvodynia, unspecified; I10 Essential (primary) hypertension; E78.00 Pure hypercholesterolemia, unspecified; E78.1 Pure hyperglyceridemia; Z79.899 Other long term (current) drug therapy
CPT/HCPCS: 52005; 00873; J7120; J2405

== ENCOUNTER 2023-08-03 06:58 | Day surgery (SDC) | payer OTHER, SELFPAY ==
[2023-08-03 07:22] VITALS: BP 137/65; PULSE 76; RESP 16; TEMP 36.6; O2SAT 96; BMI 33.3
[2023-08-03] MEDS: Lactated Ringers 1,000 ML 15 ML IV (07:39)
[2023-08-03] MEDS: Cefazolin 2 GM in 0.9% Normal Saline (100mL Bag) 100 ML IV (08:32)
--- NOTE | 2023-08-03 08:37 | DCINST_ITS ---
Discharge Instructions Diet Discharge Diet: No restrictions Activity Discharge Activity: Return to Normal Activity Dressing / Incision Call your doctor if you observe: Fever of 101 or Higher, Inability to urinate and Inability to have a bowel movement Follow Up Care Please Follow Up With: Keiry Auguste MD When: The office will call the patient for follow up appt in 2-3 weeks with CHUCK. Test Results: Test results from this visit will be discussed in further detail at your follow- up appointment, if applicable. Discharge Plan Admission Attending Provider: Keiry Auguste Primary Care Provider: Jama Nascimento Discharge Orders/Prescriptions Prescriptions: New oxycodone-acetaminophen [Percocet] 5-325 mg tablet 1 tab PO Q8H PRN (Reason: pain) 3 Days Qty: 10 0RF cephalexin [cephalexin] 500 mg capsule 500 mg PO Q12 3 Days Qty: 6 0RF Continued cholecalciferol (vitamin D3) 25 mcg (1,000 unit) capsule 25 mcg PO DAILY omega-3 fatty acids [Fish Oil Concentrate] 1,000 mg capsule 1,000 mg PO DAILY red yeast rice 600 mg capsule 600 mg PO DAILY Rx Instructions: give with meal/snack lisinopril 20 MG tablet 20 mg PO DAILY ezetimibe 10 MG tablet 10 mg PO DAILY fenofibrate nanocrystallized [Tricor] 48 mg tablet 48 mg PO DAILY niacin 500 mg tablet 500 mg PO DAILY vitamin M42-kunpt acid 2,500-400 mcg tablet,disintegrating 2 tab PO DAILY Referrals / Follow Up: Jama Nascimento DO [Primary Care Provider] - Disposition Disposition (needs filled in before D/C Order can be placed): Home, Self Care
--- NOTE | 2023-08-03 08:42 | PCM.OPRPT ---
Report of Operation Date of Procedure: 08/03/23 Pre-Operative Diagnosis: left renal calculus Post-Operative Diagnosis: same Surgery/Procedure Performed:: left renal extracorporeal shockwave lithotripsy Surgeon: Keiry Auguste Type of Anesthesia: General Specimen's removed: none Description of Procedure: The patient is here for surgical intervention for a left renal calculus. Informed consent was obtained. The patient was taken to the operating room and placed on the operating room table. Anesthesia monitored the head, neck, airway, IV access and vital signs throughout the case. Once anesthesia was appropriately administered, the patient was positioned on the lithotripsy table such that the stones were easily visible. 3000 shocks in total were applied to 2 separate areas in the kidney and the stones appeared to be well fragmented at the conclusion of the case. She was then awakened and taken to the recovery room in good condition. There were no complications during this procedure. Of note, she previously underwent a right extracorporal shockwave lithotripsy, using the C arm, no further stone fragments were noted in the right kidney at this time. Grafts/Implants Used: None Complications none Admit VTE Documentation VTE Present on Admission: Yes VTE Mechan Device Prophylaxis: SCD's VTE Pharm Prophylaxis ordered?: No Reason prophylaxis not ordered:: Treatment Not Indicated
[2023-08-03 09:36] VITALS: BP 133/71; BP 137/65; PULSE 70; RESP 15; TEMP 36.4; O2SAT 98
[2023-08-03 09:45] VITALS: BP 137/65; BP 139/67; PULSE 68; RESP 16; O2SAT 97
[2023-08-03 09:50] VITALS: BP 131/66; BP 137/65; PULSE 68; RESP 15; TEMP 36.4; O2SAT 100
[2023-08-03 10:46] VITALS: BP 137/65; BP 150/66; PULSE 77; RESP 16; TEMP 36.3; O2SAT 97
== END 2023-08-03 10:47 | disposition home or self-care (01) ==
LOC: SDC 06:59 → AC 07:01
PROVIDERS: PCP Student in an Organized Health Care Education/Training Program; Referring Provider Urology; Visit Provider Urology
PROC: (CPT 50590; principal; 2023-08-03 08:20)
DX: N20.0 Calculus of kidney (principal); R35.0 Frequency of micturition; N95.2 Postmenopausal atrophic vaginitis; N39.46 Mixed incontinence; M99.01 Segmental and somatic dysfunction of cervical region; M99.02 Segmental and somatic dysfunction of thoracic region; M99.03 Segmental and somatic dysfunction of lumbar region; M99.05 Segmental and somatic dysfunction of pelvic region; E78.00 Pure hypercholesterolemia, unspecified; E78.1 Pure hyperglyceridemia; I10 Essential (primary) hypertension; Z79.899 Other long term (current) drug therapy
CPT/HCPCS: 50590; 00873; J7120; J2405

== ENCOUNTER → 2023-08-29 | Outpatient (CLI) | payer OTHER, SELFPAY ==
--- NOTE | 2023-08-29 14:22 | RAD_ITS ---
STUDY: X-RAY - ABDOMEN/PELVIS REASON FOR EXAM: Female, 63 years old. Renal stones. Follow-up. TECHNIQUE: Single AP view of the abdomen / pelvis on 3 images. COMPARISON: May 17, 2023 FINDINGS: Normal visualized lung bases. Normal bowel gas pattern with no disproportionate dilatation. No demonstrated free abdominal air. Multiple small calcifications projected over the left kidney which were present on the prior study. Calcifications project over the right kidney are not identified although there is substantial feces and gas obscuring the right renal outline. Normal soft tissue structures. Thoracic and lumbosacral spondylosis and right total hip arthroplasty with moderate to marked arthrosis of the left hip. RAD/Abdomen Single View IMPRESSION: Left nephrocalcinosis. See discussion above. Electronically Signed: Donnie Palma MD at 15:23 EDT ,
== END | disposition home or self-care (01) ==
LOC: MTRAD 14:21
PROVIDERS: PCP Student in an Organized Health Care Education/Training Program; Referring Provider Urology; Visit Provider Urology
DX: N20.0 Calculus of kidney (principal)
CPT/HCPCS: 74018

== ENCOUNTER 2023-12-26 19:50 | Emergency (ER) | payer OTHER, SELFPAY ==
[2023-12-26 19:51] VITALS: BP 212/89; PULSE 78; RESP 16; TEMP 36.2; O2SAT 98; BMI 33.7
--- NOTE | 2023-12-26 20:01 | EKG12_ITS ---
Test Reason : HTN Blood Pressure : / mmHG Vent. Rate : 072 BPM Atrial Rate : 072 BPM P-R Int : 172 ms QRS Dur : 110 ms QT Int : 418 ms P-R-T Axes : 034 -14 001 degrees QTc Int : 457 ms Normal sinus rhythm Moderate voltage criteria for LVH, may be normal variant ( R in aVL , [place] product ) Borderline ECG Confirmed by Marc Del Valle ([id number]), film editor supervisor CHONG DENNY ([id number]) on 12/27/2023 10:57:39 AM Referred By: Confirmed By:Marc Del Valle
--- NOTE | 2023-12-26 20:18 | RAD_ITS ---
STUDY: X-RAY CHEST REASON FOR EXAM: Female, 63 years old. chest pain TECHNIQUE: Single AP portable view of the chest. COMPARISON: 04/08/2021 FINDINGS: The lungs are clear and expanded. There is no demonstrated pleural abnormality. Normal size heart. Normal mediastinum and tate. Normal visualized pulmonary arteries. Normal visualized aortic arch and descending thoracic aorta. Normal visualized thoracic spine. Normal visualized ribs, clavicles, and shoulders. There is no demonstrated abnormality of the visualized soft tissue structures of the upper abdomen. RAD/Chest 1 View (Portable) IMPRESSION: Normal x-ray examination of the chest. Electronically Signed: Flash Lawton MD at 20:27 EST ,
[2023-12-26 20:27] LABS: Absolute Lymphocyte Count 2.94 X10^3/uL (0.83-4.51); Absolute Neutrophil Count 3.1 X10^3/uL (2.0-7.7); Basophil# 0.03 X10^3/uL; Basophil% 0.4 % (0-1); Eosinophil# 0.12 X10^3/uL; Eosinophils% 1.8 % (0-5); Hematocrit 46.9 % (37-47); Lymphocyte # 2.94 X10^3/ul (0.83-4.51); Lymphocyte % 43.4 % (19-41); Mean Corpuscular Hgb 29.1 pg (27.0-32.0); Mean Corpuscular Volume 90.9 fL (81-99); Mean Platelet Vol. 12.4 fl (6.2-12.0); Monocyte# 0.52 X10^3/uL; Monocyte% 7.7 % (0-10); NRBC Flagged by Analyzer 0 % (0-5); Neutrophil # 3.14 X10^3/uL (2.7-7.7); Neutrophil % 46.4 % (47-70); POSITIVE COUNT YES; RBC Distribution Width SD 40.1 fl (35.1-43.9); Red Blood Count 5.16 M/mm3 (4.2-5.4); White Blood Count 6.8 K/mm3 (4.4-11.0)
[2023-12-26 20:29] LABS: Differential Indicated SCAN CRITERIA MET
[2023-12-26 20:30] LABS: Anisocytosis RARE; Platelet Estimate SLT DEC (ADEQ); Red Cell Morphology N CHROM NORMAL (NORM C&C)
[2023-12-26 20:49] LABS: Anion Gap 7 (5-15); BUN 19 mg/dL (7-18); BUN/Creat Ratio 21.8 RATIO (10-20); Calcium,Total 9.3 mg/dL (8.5-10.1); Chloride 113 mmol/L (98-107); Creatinine, Serum 0.87 mg/dL (0.55-1.02); EST Glomerular Filtration Rate 69 mL/min (>60); Est Glom Filt Rate - Afr Amer 84 mL/min (>60); Estimated Creatinine Clearance 68.11 ml/min; Glucose 98 mg/dL (74-106); Potassium 4.1 mmol/L (3.5-5.1); Sodium Level 141 mmol/L (136-145); Troponin-I HS (w/2H Reflex) 9 pg/mL (3.0-54.0)
[2023-12-26 20:51] VITALS: O2SAT 97
--- OUTSIDE RECORDS SUMMARY | 2023-12-26 20:59 | XMS RPT_ITS | CCD ---
Author Name Unknown Address [address] [place] [address] Organization [facility] Care Team Providers Care Home Health Rn Name Role Phone Jama Loya DO Primary Care Provider JAMA LOYA Primary Care Unavailable KATHIA HUBBARD Attending Unavailable JAMA LOYA Referring Unavailable JAMA LOYA Primary Care Unavailable IRVIN KATHIA Attending Unavailable JAMA LOYA Referring Unavailable JAMA LOYA Primary Care Unavailable JAMA LOYA Primary Care Unavailable KATHIA HUBBARD Attending Unavailable JAMA LOYA Primary Care Unavailable IRVIN KATHIA Referring Unavailable JAMA LOYA Primary Care Unavailable IRVIN KATHIA Referring Unavailable Allergies Allergy Classification Reported Allergen(s) Allergy Type Date of Onset Reaction(s) Facility (9 sources) busPIRone; Translations: [BUSPIRONE] Drug Allergy 09-07-2001 Other: See Comments [facility] (9 sources) Ciprofloxacin; Translations: [CIPROFLOXACIN] Drug Allergy 09-07-2001 Other: See Comments [facility] (3 sources) HMG-CoA reductase inhibitor; Translations: [SBQLQWI-CNH-GOS REDUCTASE INHIBITORS] Drug Allergy 09-07-2001 Other: See Comments [facility] (2 sources) Macrolides (Antibiotic); Translations: [MACROLIDE ANTIBIOTICS] Drug Allergy 07-14-2004 Other: See Comments [facility] (2 sources) Penicillins; Translations: [PENICILLINS] Drug Allergy 09-07-2001 Other: See Comments [facility] (9 sources) Simvastatin; Translations: [SIMVASTATIN] Drug Allergy 10-20-2010 Other: See Comments [facility] (9 sources) Ssri's; Translations: [SSRI'S] Drug Allergy 09-07-2001 Other: See Comments [facility] (14 sources) HMG-CoA reductase inhibitor Drug Allergy 09-07-2001 Other: See Comments [facility] (7 sources) Macrolides Drug Allergy 07-14-2004 Other: See Comments [facility] (7 sources) Penicillins Drug Allergy 09-07-2001 Other: See Comments [facility] Medications Current Medications Medication Drug Class(es) Dates Sig (Normalized) Sig (Original) amoxicillin 875 mg / clavulanate 125 mg oral tablet (4 sources) Penicillin-class Antibacterial Start: 12-30-2022 End: 01-09-2023 take 1 tablet by mouth twice daily amoxicillin-clav ulanic acid (AUGMENTIN) 875-125 mg per tablet Indications: Bacterial sinusitis Take 1 tablet by mouth twice daily for 10 days. 20 tablet 0 12/30/2022 01/09/2023 Active Completed/Discontinued Medications Medication Drug Class(es) Dates Sig (Normalized) Sig (Original) cholecalciferol 0.025 mg oral capsule (8 sources) Vitamin D Start: 11-14-2018 take 5 capsules by mouth once daily Cholecalciferol, Vitamin D3, (VITAMIN D) 1,000 unit cap Take 5 capsules by mouth once daily. 0 11/14/2018 Active Problems Active Problems Problem Classification Problem Date Documented Da te Episodic/Chronic Anxiety disorders (8 sources) Generalized anxiety disorder; Translations: [Generalized anxiety disorder] 07-14-2004 Chronic Diabetes mellitus without complication (8 sources) Impaired fasting glycemia; Translations: [Impaired fasting glucose] 05-22-2019 Episodic Disorders of lipid metabolism (20 sources) Hyperlipidemia; Translations: [Other hyperlipidemia] Onset: 08-28-2019 Chronic Essential hypertension (10 sources) Benign essential hypertension; Translations: [Essential (primary) hypertension] Onset: 10-01-2002 03-08-2004 Chronic Headache; including migraine (8 sources) Migraine with aura; Translations: [Migraine with aura, not intractable, without status migrainosus] Onset: 11-21-2007 11-14-2018 Chronic Nutritional deficiencies (9 sources) Vitamin D deficiency; Translations: [Vitamin D deficiency, unspecified] Onset: 08-28-2019 08-28-2019 Chronic Osteoarthritis (8 sources) Osteoarthritis; Translations: [Unspecified osteoarthritis, unspecified site] Onset: 08-03-2011 08-03-2011 Chronic Other upper respiratory disease (8 sources) Allergic rhinitis; Translations: [Allergic rhinitis, unspecified] Onset: 07-14-2004 11-14-2018 Chronic Other upper respiratory infections (1 source) Bacterial sinusitis; Translations: [Chronic sinusitis, unspecified] Chronic Past or Other Problems Problem Classification Problem Date Documented Date Episodic/Chronic Calculus of urinary tract (8 sources) Kidney stone; Translations: [Calculus of kidney] Onset: 04-26-2005 04-26-2005 Episodic Nutritional deficiencies (1 source) Deficiency of other specified B group vitamins; Translations: [Vitamin B12 deficiency] Onset: 01-02-2023 Episodic Other acquired deformities (8 sources) Leg length inequality; Translations: [Unequal limb length (acquired), unspecified site] Onset: 02-28-2012 02-28-2012 Episodic Other connective tissue disease (8 sources) Enthesopathy of hip region; Translations: [Other specified enthesopathies of unspecified lower limb, excluding foot] Onset: 10-20-2010 10-20-2010 Episodic Other connective tissue disease (8 sources) Iliotibial band friction syndrome; Translations: [Iliotibial band syndrome, unspecified leg] Onset: 11-24-2010 11-24-2010 Episodic Other connective tissue disease (8 sources) Fibromyalgia; Translations: [Fibromyalgia] Onset: 11-14-2018 11-14-2018 Episodic Other non-traumatic joint disorders (8 sources) Hip pain; Translations: [Pain in right hip] Onset: 01-03-2022 01-03-2022 Episodic Other screening for suspected conditions (not mental disorders or infectious disease) (3 sources) Patient encounter status; Translations: [Encounter for screening mammogram for malignant neoplasm of breast] Onset: 12-30-2022 12-30-2022 Episodic Results Test Name Value Interpretation Reference Range Facil ity Vital Signs Date Time Vital Sign Value Performing Clinician Eboni rojas 12-30-2022 08:18-0500 Body temperature 98.1 [degF] Kathia Hubbard APRN.CNP Work Phone: [facility] 12-30-2022 08:18-0500 Body weight 83.28 kg Kathia Hubbard APRN.CNP Work Phone: [facility] 12-30-2022 08:18-0500 Diastolic blood pressure 88 mm[Hg] Kathia Hubbard APRN.CNP Work Phone: [facility] 12-30-2022 08:18-0500 Heart rate 72 /min Kathia Hubbard LEGAL AID.ELECTRON BEAM WELDING MACHINE OPERATOR Work Phone: [facility] 12-30-2022 08:18-0500 Respiratory rate 14 /min Kathia Hubbard LEGAL AID.ELECTRON BEAM WELDING MACHINE OPERATOR Work Phone: [facility] 12-30-2022 08:18-0500 Systolic blood pressure 132 mm[Hg] Kathia Hubbard LEGAL AID.ELECTRON BEAM WELDING MACHINE OPERATOR Work Phone: [facility] Encounters Encounter Date Encounter Type Care Provider Facility Start: 10-16-2023 End: 10-16-2023 ambulatory JAMA LOYA Facility:[facility] Start: 06-10-2023 Refill Kathia Hubbard LEGAL AID.ELECTRON BEAM WELDING MACHINE OPERATOR Work Phone: [facility] [place] Procedures Date Procedure Procedure Detail Performing Clinician Start: 01-02-2023 Lipid 1996 panel - S owen or Plasma Screen Wstr Start: 12-30-2022 End: 12-30-2022 Mammography Bulk Order Provider Start: 01-02-2022 Adult depression scr eening assessment Jama Loya DO Work Phone: Start: 11-08-2021 Mammography Jama burns DO Work Phone: Start: 03-01-2013 Colonoscopy Jama burns DO Work Phone: Plan of Treatment Date Care Activity Detail Author Start: 01-02-2028 Lipid 1996 panel - S owen or Plasma Lipid Screening [facility] Start: 01-02-2028 LIPID SCREEN LIPID SCREEN [facility] Start: 05-05-2027 LIPID SCREEN LIPID SCREEN [facility] Start: 01-03-2027 LIPID SCREEN LIPID SCREEN [facility] Start: 01-02-2026 DIABETES SCREEN DIABETES SCREEN [facility] Start: 01-02-2026 Diabetes Screening Diabetes Screenin g [facility] Start: 05-05-2025 DIABETES SCREEN DIABETES SCREEN [facility] Start: 05-04-2025 Urine microalbumin profile [facility] Start: 01-03-2025 DIABETES SCREEN DIABETES SCREEN [facility] Start: 01-02-2024 ANNUAL PCP TEAM RETIREMENT PLAN SPECIALIST SPENSER DISEASE VISIT ANNUAL PCP TEAM CHRONIC DISEASE VISIT [facility] Start: 12-30-2023 ANNUAL PCP TEAM RETIREMENT PLAN SPECIALIST SPENSER DISEASE VISIT ANNUAL PCP TEAM CHRONIC DISEASE VISIT [facility] Start: 12-30-2023 Mammography [facility] Start: 07-14-2023 Covid-19 Vaccine ( season) Covid-19 Vaccine ( season) [facility] Start: 07-14-2023 Influenza vaccination C [facility] Start: 05-12-2023 Influenza vaccination INFLUENZA (#1) [facility] Immunizations Immunization Date Immunization Notes Care Provider Fa cility 11-14-2018 influenza virus vaccine, unspecified formulation Screen Wstr [facility] 05-04-2015 tetanus toxoid, redu jeannie diphtheria toxoid, and acellular pertussis vaccine, adsorbed Jama Loya DO Work Phone: [facility] 09-24-2013 tetanus toxoid, redu jeannie diphtheria toxoid, and acellular pertussis vaccine, adsorbed Jama Loya DO Work Phone: [facility] Work Phone: 08-25-2009 influenza virus vaccine, unspecified formulation Jama Loya DO Work Phone: [facility] Work Phone: 08-25-2009 tetanus toxoid, redu jeannie diphtheria toxoid, and acellular pertussis vaccine, adsorbed Jama Loya DO Work Phone: [facility] Work Phone: 11-13-1996 diphtheria and tetan us toxoids, adsorbed for pediatric use Jama Loya DO Work Phone: [facility] Work Phone: 11-13-1996 hepatitis B vaccine, adult dosage Jama Loya DO Work Phone: [facility] Work Phone: Payers Date Payer Category Payer Unknown MMO MMO [employer] [id number] 2015-Present [phone] [address] [place] [address] [facility] [id number] 2015 Unknown [id number] 2015 Unknown [id number] Social History Date Type Detail Facility Start: 12-30-2022 Tobacco smoking stat us WAIS Ex-smoker [facility] Start: 01-03-2022 End: 12-30-2022 Alcohol intake Current non-drinker of alcohol (finding) [facility] Start: 01-02-2022 End: 12-29-2022 History SDOH Alcohol Frequency 2 [facility] Start: 01-02-2022 End: 12-29-2022 History SDOH Alcohol Std Drinks 1 [facility] Start: 02-02-2009 History SDOH Alcohol Comment Quit 20 yrs ago. [facility] Start: 01-02-2022 End: 12-29-2022 History SDOH Social Connections [employer] 3 [facility] Start: 01-02-2022 End: 12-29-2022 History SDOH Financial 5 [facility] Start: 09-29-2020 Education 18 [facility] Start: 02-02-2009 End: 12-30-2022 Tobacco Comment Hx smoking occasionally in college - quit then. [facility] Start: 1960 Sex Assigned At Not on file C [facility] History of tobacco use Current smoker [facility] Start: 12-30-2022 Tobacco use and exposure Smoke less tobacco non-user [facility] Start: 12-29-2022 History SDOH Alcohol Std Drinks 0 [facility] Start: 12-29-2022 History SDOH Social Connections Phone 98 [facility] Start: 12-29-2022 History SDOH Financial 4 [facility] Start: 12-29-2022 End: 12-30-2022 History of Social function [place] [facility] Start: 12-29-2022 End: 12-30-2022 Social connection and isolation panel [facility] In a typical week, h ow many times do you talk on the telephone with family, friends, or neighbors? Patient refused [facility] Do you belong to any clubs or organizations such as mandaeism groups, unions, fraternal or athletic groups, or school groups? Yes [facility] Are you now , , , , never or living with a partner? [facility] How often to you hav e a drink containing alcohol? Never [facility] How hard is it for y ou to pay for the very basics like food, housing, medical care, and heating Not very hard [facility] Do you feel stress - tense, restless, nervous, or anxious, or unable to sleep at night because your mind is troubled all the time - these days [OSQ] Not at all [facility] (I/We) worried wheth er (my/our) food would run out before (I/we) got money to buy more. Never true [facility] In the past 12 month s, was there a time when you were not able to pay the mortgage or rent on time? No [facility] Clinical Notes 10-01-2002 to 10-16-2023 Telephone Encounter - Catrina Lopez OCCA - 06/12/2023 9:09 AM EDTTelephone Encounter - Dona Lyons LPN - 01/27/2023 12:04 PM EDTTelephone Encounter - Augustina Dailey RN - 01/04/2023 4:49 PM EST Note Date & Type Note Facility 10-16-2023 Note HNO ID: [id number] Author: Kathia Hubbard APRN.ELECTRON BEAM WELDING MACHINE OPERATOR Service: ? Author Type: Nurse Practitioner Type: Progress Notes Filed: 10/16/2023 7:29 AM Note Text: This Team Access Model visit is a phone encounter. It required patient-provider interaction for the medical decision making as documented below. Patient agrees to the visit: Yes Patient Location: [place] CC: Patient presents with: Refill Request I have communicated my name and active licensure. The patient's identity and physical location were verified at the time of this visit. Either the patient or their legal account service representative has been informed of the risks and benefits of -- and alternatives to -- treatment through a remote evaluation and consents to proceed with the evaluation remotely. SHAR Hutchins is a 63 year old female who is contacted today for a phone visit. This is an established patient of Dr. Jama Loya DO. Concerns today.. Needing refill of Tricor regimen. Tolerating well. No side effects or concerns. Has routine physical schedule with Dr. Loya in December. Due for lab work then. No other concerns or complaints. REVIEW OF SYSTEMS See HPI PAST MEDICAL HISTORY Diagnosis Date Allergic rhinitis Dander/mold/dustl, Dr. Warren flooring mechanic Essential hypertension, benign On meds since [address] Gill, now ENT IFG (impaired fasting glucose) Mixed hyperlipidemia 06/11/04 TC 245/HDL 37/LDL 172/TG 159 Myalgia and myositis, unspecified 1999 Chronic fatigue/fibromyalgia Other forms of migraine Unspecified symptom associated with female genital organs Vulvodynia/urethritis, - UROLOGY PAST SURGICAL HISTORY Procedure Laterality Date APPENDECTOMY Appx and ovarian cyst, age 15 DELIVERY ONLY 1981, 1987 , low cervical S SLING BLADDER 2011 for cystocele TOTAL HIP REPLACEMENT Right 05/16/2021 VAGINAL HYSTERECTOMY UTERUS 250 GM/< 1994 Hysterectomy, vaginal and uni SO for DUB ALLERGIES Buspirone, Ciprofloxacin, Macrolide Antibiotics, Penicillins, Ssri's, Zqbrzxi-Sih-Wpf Reductase Inhibitors, Kwmebfc-Lar-Nbk Reductase Inhibitors, and Zocor [Simvastatin] MEDICATIONS fenofibrate nanocrystallized (TRICOR) 48 mg tablet Take 1 tablet by mouth once daily. lisinopril (ZESTRIL) 20 mg tablet Take 1 tablet by mouth once daily. ezetimibe (ZETIA) 10 mg tablet Take 1 tablet by mouth once daily. estradiol (ESTRACE) 0.01 % (0.1 mg/gram) vaginal cream Use vaginally once each week. Cholecalciferol, Vitamin D3, (VITAMIN D) 1,000 unit cap Take 5 capsules by mouth once daily. MULTIVITAMIN TAB Take one(1) tablet daily. FAMILY HISTORY Problem Relation Age of Onset Lipids Mother Hypertension Mother Alcohol/Drug Father Dementia Father Anxiety disorder Son Anxiety disorder Son Cervical Cancer Daughter Bipolar disorder Daughter Cancer Paternal Grandmother skin cancer other (lung cancer) Paternal Grandfather Cancer Maternal Grandmother Liver cancer Diabetes Maternal Grandfather DM Lipids Maternal Uncle Hypertension Maternal Uncle Ischemic Heart Disease Maternal Aunt in her 80s Colon Cancer No Family History Breast Cancer No Family History Social History Tobacco Use Smoking status: Former Smokeless tobacco: Never Tobacco comments: Hx smoking occasionally in college - quit then. Substance Use Topics Alcohol use: No Comment: Quit 20 yrs ago. Drug use: No Comment: [id number] little EXAM: Deferred physical exam as visit was completed over the phone Patient is speaking in complete sentences without obvious respiratory distress or audible wheezing. Virtual visit completed using video, limited exam completed. No exam performed DATA REVIEWED: Most recent labs and imaging results. HIV Screening Never done Shingrix Vaccine(1 of 2) Never done RSV Vaccine(1 - 1-dose 60+ series) Never done BP Controlled (<130/80) due on 01/03/2023 Colorectal Cancer Screening due on 03/01/2023 Influenza Vaccine(1) due on 07/14/2023 Covid-19 Vaccine(5 - 2022-24 season) due on 07/14/2023 Mammogram Screening due on 12/30/2023 Annual PCP Team Chronic Disease Visit due on 01/02/2024 DTaP,Tdap,Td Vaccine(5 - Td or Tdap) due on 05/04/2025 Diabetes Screening due on 01/02/2026 Lipid Screening due on 01/02/2028 Depression Assessment Completed Hepatitis C Screening Completed Pap Testing Discontinued HPV Testing Discontinued ASSESSMENT/PLAN: 1. Familial hyperlipidemia - ICD9: 272.4, ICD10: E78.49 Stable. Refilled. Tolerating well. - FENOFIBRATE NANOCRYSTALLIZED 48 MG TABLET Prescription instructions reviewed with patient as applicable. Potential red flag symptoms discussed with the patient. Reviewed appropriate action plan to take if red flag symptoms occur. Patient agreeable to treatment plan. During this patient visit I have spent approximately 10 minutes in counseling regarding treatment options and (more content not included)... [facility] 06-12-2023 Miscellaneous Notes Patient has been identified by name and date of : Yes Patient phones for refill(s): Requested Prescriptions Pending Prescriptions Disp Refills fenofibrate nanocrystallized (TRICOR) 48 mg tablet 90 tablet 0 Sig: Take 1 tablet by mouth once daily. Date of last office visit in primary care: JAKI 01/02/23 NOV not scheduled Last 2 Encounter Wt Readings: Date: Wt: 01/02/2023 84 kg (185 lb 3.2 oz) 12/30/2022 83.3 kg (183 lb 9.6 oz) Please advise. Thank you. LOLA Arellano documented in this encounter [facility] 02-07-2023 Note HNO ID: [id number] Author: Babs Ray RDMS Service: ? Author Type: Human Resources Office Assistant Type: Progress Notes Filed: 02/07/2023 9:02 AM Note Text: Radiology Service Progress Note PATIENT NAME: Stephy Hutchins DATE OF SERVICE: February 07, 2023 TIME: 9:02 AM PATIENT IDENTITY VERIFICATION COMPLETED USING TWO (2) IDENTIFIERS: Name and Date of confirmed by patient verbally. FALL SCREENING: Has the patient had 2 falls in the last year or 1 fall with injury or currently using an Ambulatory Assistive Device (Walker, Cane, Wheelchair, Crutches, etc.)? No PATIENT GENDER DATA: Female. status: : No status: NO. PATIENT RELEVANT IMPLANT DATA REVIEWED: Not Applicable RADIOLOGY DEPARTMENT: Ultrasound PERIPHERAL IV DATA: Not applicable SIGNED BY: Babs Ray RDMS February 07, 2023 9:02 AM [facility] 01-27-2023 Miscellaneous Notes Jaki--01/02/23 Nov--nothing scheduled Last refill--zetia-01/03/22 90 with 3 refills Lisinopril-01/03/22 90 with 3 refills Last labs--01/02/23 documented in this encounter [facility] 01-04-2023 Miscellaneous Notes Spoke with patient. Given message from provider's office. Patient verbalizes understanding. Augustina Dailey RN Called pt and she reports she will contact office for results since she is busy at this time. Velvet Ospina Please call patient and let her know that lab work is back! No acute concerns. Vitamin D level is normal but on the low end --- continue the 5000 units of vitamin D3 supplement daily and consistently. Vitamin B12 is elevated -- this is water soluble and any extra that the body does not need will be excreted through urine/kidneys. This cannot become toxic. Lastly, lipid panel is elevated as expected and discussed at appointment. I know statin therapy is a no go. Continue on Zetia. We can trial a fenofibrate which targets triglyceride levels but also helps lower LDL and total cholesterol as well. I have sent 48 mg of Tricor to pharmacy if pt is willing. Repeat lipid panel in 3 months if so. Thank you, Kathia Hubbard APRN.ELECTRON BEAM WELDING MACHINE OPERATOR documented in this encounter [facility] 01-02-2023 Note HNO ID: [id number] Author: Kathia Hubbard APRN.YURIDIA Service: ? Author Type: Nurse Practitioner Type: Progress Notes Filed: 01/02/2023 8:00 AM Note Text: Chief Complaint Patient presents with: Physical: Insurance physical HPI Stephy Hutchins is a 62 year old female who presents here today for Above Complaints. Stephy is an established patient of Dr. Loya, and myself. Concerns today.. HTN--- She states compliant with current blood pressure medication(s): lisinopril 20 mg daily. She does not check BP at home. She denies chest pain, shortness of breath, palpitations, dizziness, leg edema, headaches, or vision changes. Last 14 Encounter BP Readings: Date: BP: 01/02/2023 130/60 12/30/2022 132/88 01/03/2022 130/80 09/30/2020 118/78 08/28/2019 130/82 05/22/2019 134/86 11/14/2018 120/51 12/11/2017 140/80 12/02/2017 136/88 05/28/2017 132/84 01/12/2017 132/80 12/15/2016 124/84 05/10/2016 116/84 11/02/2015 130/96 HLD -- Zetia 10 mg daily. Familial poor control of lipids. Does not tolerate statin therapy. Admits that eating habits are very interval - sometimes she eats healthy and sometimes she does not. Takes vitamin D3 supplement and B12 supplement d/t deficiencies HM-- Recent mammogram abnormality in L breast. Needs US and mammo diagnostic ordered. Due for colon cancer screening in February, last colonoscopy in 2012 was normal -- no family hx of colon cancer. Past medical history, appointments, medications, allergies reviewed. 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 Gill, now ENT IFG (impaired fasting glucose) Mixed hyperlipidemia 06/11/04 TC 245/HDL 37/LDL 172/TG 159 Myalgia and myositis, unspecified 1999 Chronic fatigue/fibromyalgia Other forms of migraine Unspecified symptom associated with female genital organs Vulvodynia/urethritis, - UROLOGY Previous Surgical History PAST SURGICAL HISTORY Procedure Laterality Date APPENDECTOMY Appx and ovarian cyst, age 15 DELIVERY ONLY 1981, 1987 , low cervical S SLING BLADDER 2011 for cystocele TOTAL HIP REPLACEMENT Right 05/16/2021 VAGINAL HYSTERECTOMY UTERUS 250 GM/< 1994 Hysterectomy, vaginal and uni SO for DUB Family History FAMILY HISTORY Problem Relation Age of Onset Lipids Mother Hypertension Mother Alcohol/Drug Father Dementia Father Anxiety disorder Son Anxiety disorder Son Cervical Cancer Daughter Bipolar disorder Daughter Cancer Paternal Grandmother skin cancer other (lung cancer) Paternal Grandfather Cancer Maternal Grandmother Liver cancer Diabetes Maternal Grandfather DM Lipids Maternal Uncle Hypertension Maternal Uncle Ischemic Heart Disease Maternal Aunt in her 80s Colon Cancer No Family History Breast Cancer No Family History Patient Allergies ALLERGIES Allergen Reactions Buspirone Other: See Comments HYPERSENSITIVITY lost wt--paradoxical rx-wanted to drive into traffic Ciprofloxacin Other: See Comments ANXIETY Macrolide Antibioti* Other: See Comments chest pains with Zpak Penicillins Other: See Comments rash-2002 Ssri's Other: See Comments HYPERSENSITIVITY, Zoloft more nervous with it Nxbrgby-Auc-Tnw Red* Other: See Comments PANIC ATTACKS, Baycol Aiuqmdi-Jxr-Isr Red* Other: See Comments MUSCLE PAIN, Lipitor Zocor [Simvastatin] Other: See Comments vertigo Current Medications Current Outpatient Medications on File Prior to Visit Medication Sig amoxicillin-clavulanic acid (AUGMENTIN) 875-125 mg per tablet Take 1 tablet by mouth twice daily for 10 days. lisinopril (ZESTRIL, PRINIVIL) 20 mg tablet Take 1 tablet by mouth once daily. ezetimibe (ZETIA) 10 mg tablet Take 1 tablet by mouth once daily. estradiol (ESTRACE) 0.01 % (0.1 mg/gram) vaginal cream Use vaginally once each week. Cholecalciferol, Vitamin D3, (VITAMIN D) 1,000 unit cap Take 5 capsules by mouth once daily. MULTIVITAMIN TAB Take one(1) tablet daily. No current facility-administered medications on file prior to visit. Social History Social History Tobacco Use Smoking status: Former Smokeless tobacco: Never Tobacco comments: Hx smoking occasionally in college - quit then. Substance Use Topics Alcohol use: No Comment: Quit 20 yrs ago. Drug use: No Comment: [id number]-[id number]-bqan little REVIEW OF SYSTEMS: as above Reviewed relevant PMHx, PSHx, Social Hx, current medications and allergies. Review of Symptoms REVIEW OF SYSTEMS See HPI. EXAM: BP 130/60 (BP Site: Right Arm, BP Position: Sitting, BP Cuff Size: Regular Adult) Pulse 72 Resp 14 Ht 160 cm (5' 2.99 ) Wt 84 kg (185 lb 3.2 oz) BMI 32.82 kg/m? General Appearance: Well appearing, alert, in no acute distress, well-hydrated, well nourished.. Skin: (more content not included)... [facility] 12-30-2022 Note HNO ID: [id number] Author: Kathia Hubbard APRN.ELECTRON BEAM WELDING MACHINE OPERATOR Service: ? Author Type: Nurse Practitioner Type: Progress Notes Filed: 12/30/2022 8:45 AM Note Text: Chief Complaint Patient presents with: Sinus Problem: For about a month , chronic headache on rt side HPI Stephy Hutchins is a 62 year old female who presents here today for Above Complaints. Stephy is an established patient of Dr. Azam DO. She is a new patient to me today. Concerns today.... Sinus problem -- Sinus congestion x 1-2 months. Sinus pressure in forehead, behind eyes, and cheeks. Causing sinus headaches intermittently. Ear pressure and fullness. Some drainage down throat. Very mild non-productive cough. Has not been seen anywhere for this, no antibiotics. No other concerns or complaints. Past medical history, appointments, medications, allergies reviewed. 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 Gill, now ENT IFG (impaired fasting glucose) Mixed hyperlipidemia 06/11/04 TC 245/HDL 37/LDL 172/TG 159 Myalgia and myositis, unspecified 1999 Chronic fatigue/fibromyalgia Other forms of migraine Unspecified symptom associated with female genital organs Vulvodynia/urethritis, - UROLOGY Previous Surgical History PAST SURGICAL HISTORY Procedure Laterality Date APPENDECTOMY Appx and ovarian cyst, age 15 DELIVERY ONLY 1981, 1987 , low cervical S SLING BLADDER 2011 for cystocele TOTAL HIP REPLACEMENT Right 05/16/2021 VAGINAL HYSTERECTOMY UTERUS 250 GM/< 1994 Hysterectomy, vaginal and uni SO for DUB Family History FAMILY HISTORY Problem Relation Age of Onset Lipids Mother Hypertension Mother Alcohol/Drug Father Dementia Father Anxiety disorder Son Anxiety disorder Son Cervical Cancer Daughter Bipolar disorder Daughter Cancer Paternal Grandmother skin cancer other (lung cancer) Paternal Grandfather Cancer Maternal Grandmother Liver cancer Diabetes Maternal Grandfather DM Lipids Maternal Uncle Hypertension Maternal Uncle Ischemic Heart Disease Maternal Aunt in her 80s Colon Cancer No Family History Breast Cancer No Family History Patient Allergies ALLERGIES Allergen Reactions Buspirone Other: See Comments HYPERSENSITIVITY lost wt--paradoxical rx-wanted to drive into traffic Ciprofloxacin Other: See Comments ANXIETY Macrolide Antibioti* Other: See Comments chest pains with Zpak Penicillins Other: See Comments rash-2002 Ssri's Other: See Comments HYPERSENSITIVITY, Zoloft more nervous with it Ezptfud-Yco-Wtg Red* Other: See Comments PANIC ATTACKS, Baycol Xekwmpi-Itc-Cmy Red* Other: See Comments MUSCLE PAIN, Lipitor Zocor [Simvastatin] Other: See Comments vertigo Current Medications Current Outpatient Medications on File Prior to Visit Medication Sig lisinopril (ZESTRIL, PRINIVIL) 20 mg tablet Take 1 tablet by mouth once daily. ezetimibe (ZETIA) 10 mg tablet Take 1 tablet by mouth once daily. estradiol (ESTRACE) 0.01 % (0.1 mg/gram) vaginal cream Use vaginally once each week. Cholecalciferol, Vitamin D3, (VITAMIN D) 1,000 unit cap Take 5 capsules by mouth once daily. MULTIVITAMIN TAB Take one(1) tablet daily. No current facility-administered medications on file prior to visit. Social History Social History Tobacco Use Smoking status: Former Smokeless tobacco: Never Tobacco comments: Hx smoking occasionally in college - quit then. Substance Use Topics Alcohol use: No Comment: Quit 20 yrs ago. Drug use: No Comment: [id number]-[id number]-zbeg little REVIEW OF SYSTEMS: as above Reviewed relevant PMHx, PSHx, Social Hx, current medications and allergies. Review of Symptoms REVIEW OF SYSTEMS See HPI. All other systems are negative. EXAM: BP 132/88 (BP Site: Left Arm, BP Position: Sitting, BP Cuff Size: Large Adult) Pulse 72 Temp 36.7 ?C (98.1 ?F) Resp 14 Wt 83.3 kg (183 lb 9.6 oz) BMI 32.53 kg/m? General Appearance: Well appearing, alert, in no acute distress, well-hydrated, well nourished.. Skin: Skin color, texture, turgor normal, no suspicious rashes or lesions. Head: Normocephalic, no masses, lesions, tenderness or abnormalities. Sinus tenderness to maxillary and frontal sinuses. Eyes: Anicteric sclera. Pupils are equally round and reactive to light. Extraocular movements are intact. . Ears: External ears normal, canals clear, Positive findings: R TM: bulging, L TM: bulging. Nose/Sinuses: Nares normal, septum midline, mucosa normal, no drainage or sinus tenderness. Oropharynx: Lips, mucosa, and tongue normal, teeth and gums normal, oropharynx normal. Neck: Supple, no adenopathy; thyroid symmetric, normal size, no bruits. Lungs: Lungs clear to auscultation. No wheezing, rhonchi, rales.. Heart (more content not included)... [facility] 12-30-2022 Note HNO ID: [id number] Author: RT Raven(R) Service: ? Author Type: Technologist Type: Progress Notes Filed: 12/30/2022 7:02 AM Note Text: Radiology Service Progress Note PATIENT NAME: Stephy Hutchins DATE OF SERVICE: December 30, 2022 TIME: 7:02 AM PATIENT IDENTITY VERIFICATION COMPLETED USING TWO (2) IDENTIFIERS: Name and Date of confirmed by patient verbally. FALL SCREENING: Has the patient had 2 falls in the last year or 1 fall with injury or currently using an Ambulatory Assistive Device (Walker, Cane, Wheelchair, Crutches, etc.)? No PATIENT GENDER DATA: Female. status: : No status: NO. PATIENT RELEVANT IMPLANT DATA REVIEWED: Not Applicable RADIOLOGY DEPARTMENT: Mammography PERIPHERAL IV DATA: Not applicable SIGNED BY: Lois Hall RT(R) December 30, 2022 7:02 AM [facility] 12-30-2022 Miscellaneous Notes December 30, 2022 PID: [id number] Stephy Hutchins [address] [place] [address] Dear Ms. Hutchins, Your recent breast imaging exam on 12/30/2022 showed a possible finding that requires additional imaging studies for a complete evaluation. Most such findings are probably benign (not cancer). If you have a healthcare provider who ordered/prescribed your screening mammogram: Please call [phone] or [phone] to schedule an appointment for your additional imaging (if you have not already done so). If you DO NOT have a healthcare provider (ie you did not have an order/prescription for your screening mammogram): Please call to schedule an appointment for your additional imaging (if you have not already done so). You must have an order/prescription from your physician when calling to schedule your appointment. If your order/prescription is not electronic, you must bring the hard copy with you on the day of your exam to avoid delays. Your imaging studies and reports are kept on file at [facility] as part of your permanent medical record, and are available for your continuing care. Thank you for allowing us to help in meeting your health care needs. Sincerely, Dr. Sarmiento Interpreting Radiologist [facility] (Additional imaging) documented in this encounter [facility] 12-30-2022 History of Presen t illness Narrative Chief Complaint Patient presents with: Sinus Problem: For about a month , chronic headache on rt side HPI Stephy Hutchins is a 62 year old female who presents here today for Above Complaints. Stephy is an established patient of Dr. Azam DO. She is a new patient to me today. Concerns today.... Sinus problem -- Sinus congestion x 1-2 months. Sinus pressure in forehead, behind eyes, and cheeks. Causing sinus headaches intermittently. Ear pressure and fullness. Some drainage down throat. Very mild non-productive cough. Has not been seen anywhere for this, no antibiotics. No other concerns or complaints. Past medical history, appointments, medications, allergies reviewed. 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 Gill, now ENT IFG (impaired fasting glucose) Mixed hyperlipidemia 06/11/04 TC 245/HDL 37/LDL 172/TG 159 Myalgia and myositis, unspecified 1999 Chronic fatigue/fibromyalgia Other forms of migraine Unspecified symptom associated with female genital organs Vulvodynia/urethritis, - UROLOGY Previous Surgical History PAST SURGICAL HISTORY Procedure Laterality Date APPENDECTOMY Appx and ovarian cyst, age 15 DELIVERY ONLY 1981, 1987 , low cervical S SLING BLADDER 2011 for cystocele TOTAL HIP REPLACEMENT Right 05/16/2021 VAGINAL HYSTERECTOMY UTERUS 250 GM/< 1994 Hysterectomy, vaginal and uni SO for DUB Family History FAMILY HISTORY Problem Relation Age of Onset Lipids Mother Hypertension Mother Alcohol/Drug Father Dementia Father Anxiety disorder Son Anxiety disorder Son Cervical Cancer Daughter Bipolar disorder Daughter Cancer Paternal Grandmother skin cancer other (lung cancer) Paternal Grandfather Cancer Maternal Grandmother Liver cancer Diabetes Maternal Grandfather DM Lipids Maternal Uncle Hypertension Maternal Uncle Ischemic Heart Disease Maternal Aunt in her 80s Colon Cancer No Family History Breast Cancer No Family History Patient Allergies ALLERGIES Allergen Reactions Buspirone Other: See Comments HYPERSENSITIVITY lost wt--paradoxical rx-wanted to drive into traffic Ciprofloxacin Other: See Comments ANXIETY Macrolide Antibioti* Other: See Comments chest pains with Zpak Penicillins Other: See Comments rash-2002 Ssri's Other: See Comments HYPERSENSITIVITY, Zoloft more nervous with it Wkixrek-Usy-Rqr Red* Other: See Comments PANIC ATTACKS, Baycol Lsyhtol-Hlc-Msv Red* Other: See Comments MUSCLE PAIN, Lipitor Zocor [Simvastatin] Other: See Comments vertigo Current Medications Current Outpatient Medications on File Prior to Visit Medication Sig lisinopril (ZESTRIL, PRINIVIL) 20 mg tablet Take 1 tablet by mouth once daily. ezetimibe (ZETIA) 10 mg tablet Take 1 tablet by mouth once daily. estradiol (ESTRACE) 0.01 % (0.1 mg/gram) vaginal cream Use vaginally once each week. Cholecalciferol, Vitamin D3, (VITAMIN D) 1,000 unit cap Take 5 capsules by mouth once daily. MULTIVITAMIN TAB Take one(1) tablet daily. No current facility-administered medications on file prior to visit. Social History Social History Tobacco Use Smoking status: Former Smokeless tobacco: Never Tobacco comments: Hx smoking occasionally in college - quit then. Substance Use Topics Alcohol use: No Comment: Quit 20 yrs ago. Drug use: No Comment: [id number]-[id number]-pgod little REVIEW OF SYSTEMS: as above Reviewed relevant PMHx, PSHx, Social Hx, current medications and allergies. Review of Symptoms REVIEW OF SYSTEMS See HPI. All other systems are negative. EXAM: BP 132/88 (BP Site: Left Arm, BP Position: Sitting, BP Cuff Size: Large Adult) Pulse 72 Temp 36.7 C (98.1 F) Resp 14 Wt 83.3 kg (183 lb 9.6 oz) BMI 32.53 kg/m General Appearance: Well appearing, alert, in no acute distress, well-hydrated, well nourished.. Skin: Skin color, texture, turgor normal, no suspicious rashes or lesions. Head: Normocephalic, no masses, lesions, tenderness or abnormalities. Sinus tenderness to maxillary and frontal sinuses. Eyes: Anicteric sclera. Pupils are equally round and reactive to light. Extraocular movements are intact. . Ears: External ears normal, canals clear, Positive findings: R TM: bulging, L TM: bulging. Nose/Sinuses: Nares normal, septum midline, mucosa normal, no drainage or sinus tenderness. Oropharynx: Lips, mucosa, and tongue normal, teeth and gums normal, oropharynx normal. Neck: Supple, no adenopathy; thyroid symmetric, normal size, no bruits. Lungs: Lungs clear to auscultation. No wheezing, rhonchi, rales.. Heart: RRR without murmur, gallop, or rubs. No ectopy. Health Maintenance List HIV SCREENING Never done SHINGRIX VACCINE(1 of 2) Never done INFLUENZA(1) due on 07/14/2022 MAMMOGRAM due on 11/08/2022 DEPRESSION ASSESSMENT Never done COLORECTAL CANCER SCREENING due on 03/01/2023 ANNUAL PCP TEAM CHRONIC DISEASE VISIT due on 01/03/2023 BP CONTROLLED (<130/80) due on 01/03/2023 DTAP,TDAP,TD(5 - Td or Tdap) due on 05/04/2025 DIABETES SCREEN due on 05/05/2025 LIPID SCREEN due on 05/05/2027 HEPATITIS C SCREENING Completed COVID-19 VACCINE Completed PAP TESTING Discontinued HPV TESTING Discontinued ASSESSMENT/PLAN: 1. Bacterial sinusitis - ICD9: 473.9, 041.9, ICD10: J32.9, B96.89 - Will begin treatment with Augmentin 875 mg PO BID for 10 days - The patient should also be given OTC decongestants prn, OTC cough and cold meds as needed, warm salt water gargles, throat lozenges and/or OTC throat spray as needed, and nasal saline gtts and suction prn for the first 5-7 days of treatment. - Supportive care with plenty of fluids, rest, and analgesia prn. - Follow up in 3-5 days if symptoms persist or worsen. - AMOXICILLIN 875 MG-POTASSIUM CLAVULANATE 125 MG TABLET RTO as scheduled for wellness exam. Prescription instructions reviewed with patient as applicable. Potential red flag symptoms discussed with the patient. Reviewed appropriate action plan to take if red flag symptoms occur. Patient agreeable to treatment plan. Kathia Saucedo APRN.CNP [address] [place] [address] documented in this encounter [facility] 12-30-2022 History of Presen t illness Narrative Radiology Service Progress Note PATIENT NAME: Stephy Hutchins DATE OF SERVICE: December 30, 2022 TIME: 7:02 AM PATIENT IDENTITY VERIFICATION COMPLETED USING TWO (2) IDENTIFIERS: Name and Date of confirmed by patient verbally. FALL SCREENING: Has the patient had 2 falls in the last year or 1 fall with injury or currently using an Ambulatory Assistive Device (Walker, Cane, Wheelchair, Crutches, etc.)? No PATIENT GENDER DATA: Female. status: : No status: NO. PATIENT RELEVANT IMPLANT DATA REVIEWED: Not Applicable RADIOLOGY DEPARTMENT: Mammography PERIPHERAL IV DATA: Not applicable SIGNED BY: RT Raven(R) December 30, 2022 7:02 AM documented in this encounter [facility] 12-28-2022 Note Patient Outreach (IN [facility]) STEPHY HUTCHINS ([id number]) 1960 F Date Time Provider Department 12/28/22 JAMA LOYA During your visit today, we recorded the following information about you: Allergies As of Date: 12/28/2022 Noted Allergy Reaction BUSPIRONE 09/07/2001 14 - Other: See Comments Comments: HYPERSENSITIVITY lost wt--paradoxical rx-wanted to drive into traffic CIPROFLOXACIN 09/07/2001 14 - Other: See Comments Comments: ANXIETY MACROLIDE ANTIBIOTICS 07/14/2004 14 - Other: See Comments Comments: chest pains with Zpak PENICILLINS 09/07/2001 14 - Other: See Comments Comments: rash-2001 SSRI'S 09/07/2001 14 - Other: See Comments Comments: HYPERSENSITIVITY, Zoloft more nervous with it GWVBRKF-IOS-FMW REDUCTASE INHIBIT*09/07/2001 14 - Other: See Comments Comments: PANIC ATTACKS, Baycol JOSUPPI-PDG-VAB REDUCTASE INHIBIT*09/07/2001 14 - Other: See Comments Comments: MUSCLE PAIN, Lipitor ZOCOR (SIMVASTATIN) 10/20/2010 14 - Other: See Comments Comments: vertigo Date Reviewed: 01/03/2022 Reviewed by: Catherine Rose LPN - Fully Assessed Visit Diagnosis:Encounter for screening mammogram for breast cancer [Z12.31] Order(s):LITO SCREENING [[id number]] Order #: [id number] FUTURE Prescriptions as of 01/02/2023 - amoxicillin-clavulanic acid (AUGMENTIN) 875-125 mg per tablet Take 1 tablet by mouth twice daily for 10 days. - lisinopril (ZESTRIL, PRINIVIL) 20 mg tablet Take 1 tablet by mouth once daily. - ezetimibe (ZETIA) 10 mg tablet Take 1 tablet by mouth once daily. - estradiol (ESTRACE) 0.01 % (0.1 mg/gram) vaginal cream Use vaginally once each week. - Cholecalciferol, Vitamin D3, (VITAMIN D) 1,000 unit cap Take 5 capsules by mouth once daily. - MULTIVITAMIN TAB Take one(1) tablet daily. Problem List As Of Date 12/28/2022 Noted Resolved GENERALIZED ANXIETY DIS [F41.1] MIXED HYPERLIPIDEMIA [E78.2] Essential hypertension, benign [I10] 10/01/2002 vulvodynia [N94.9] 10/01/2002 11/14/2018 Myalgia and myositis, unspecified [ILD7102] 10/01/2002 11/14/2018 Allergic rhinitis, unspecified [J30.9] 07/14/2004 CALCULUS OF KIDNEY [N20.0] 04/26/2005 Migraine with aura [G43.109] 11/21/2007 Enthesopathy of hip region [M76.899] 10/20/2010 Iliotibial band syndrome [M76.30] 11/24/2010 Osteoarthritis [M19.90] 08/03/2011 Lower limb length difference [M21.70] 02/28/2012 Fibromyalgia [M79.7] 11/14/2018 IFG (impaired fasting glucose) [R73.01] Familial hyperlipidemia [E78.49] 08/28/2019 Vitamin D deficiency [E55.9] 08/28/2019 Well adult exam [Z00.00] 08/28/2019 Hip pain, bilateral [M25.551, M25.552] 01/03/2022 Encounter Status:Closed by DALIA PRODUSER on 01/02/23 [facility] documented as of this encounter (statuses as of 04/28/2022) [facility]11-19-2002 History of Past illness Narrative* Problem Noted Date Resolved Date vulvodynia 10/01/2002 11/14/2018 Myalgia and myositis, unspecified 10/01/2002 11/14/2018 documented as of this encounter (statuses as of 12/30/2022) [address]19-2002 History of Past illness Narrative* Problem Noted Date Resolved Date vulvodynia 10/01/2002 11/14/2018 Myalgia and myositis, unspecified 10/01/2002 11/14/2018 documented as of this encounter (statuses as of 01/02/2023) [address]19-2002 History of Past illness Narrative* Problem Noted Date Resolved Date vulvodynia 10/01/2002 11/14/2018 Myalgia and myositis, unspecified 10/01/2002 11/14/2018 documented as of this encounter (statuses as of 01/03/2023) [place] [address]-19-2002 History of Past illness Narrative* Problem Noted Date Resolved Date vulvodynia 10/01/2002 11/14/2018 Myalgia and myositis, unspecified 10/01/2002 11/14/2018 documented as of this encounter (statuses as of 01/05/2023) [facility] History of Past illness Narrative* Problem Noted Date Resolved Date vulvodynia 10/01/2002 11/14/2018 Myalgia and myositis, unspecified 10/01/2002 11/14/2018 documented as of this encounter (statuses as of 01/27/2023) [place] [address]19-2002 History of Past illness Narrative* Problem Noted Date Diagnosed Date Resolved Date vulvodynia 10/01/2002 11/14/2018 Myalgia and myositis, unspecified 10/01/2002 11/14/2018 documented as of this encounter (statuses as of 06/12/2023) [place] [address]19-2002 History of Past illness Narrative* Problem Noted Date Diagnosed Date Resolved Date vulvodynia 10/01/2002 11/14/2018 Myalgia and myositis, unspecified 10/01/2002 11/14/2018 documented as of this encounter (statuses as of 09/15/2023) [facility] Diagnosis Familial hyperlipidemia- Primary Other and unspecified hyperlipidemia documented in this encounter [facility] note* Diagnosis Bacterial sinusitis- Primary Unspecified sinusitis (chronic) documented in this encounter [facility] note* Diagnosis Familial hyperlipidemia- Primary Other and unspecified hyperlipidemia documented in this encounter [facility] note* Diagnosis Essential hypertension, benign Familial hyperlipidemia Other and unspecified hyperlipidemia documented in this encounter [facility] note* Diagnosis Familial hyperlipidemia Other and unspecified hyperlipidemia documented in this encounter [facility] note* Diagnosis Encounter for screening mammogram for breast cancer documented in this encounter [facility] for referral (narrative)* Diagnostic Procedure Only (Routine) - Closed Specialty Diagnoses / Procedures Referred By Contac Referred To Contact [facility] Diagnoses Encounter for screening mammogram for breast cancer Procedures LITO SCREENING SCREENING MAMMOGRAPHY BI 2-VIEW BREAST INC Jama Mary DO [address] [place] [address] [facility] [address] [place] [address] Referral ID Status Reason Start Date Expiration Date V isits Requested Visits Authorized [id number] Closed Auto-Generate d Referral 12/28/2022 01/27/2024 [address] [facility] for visit Narrative* Diagnostic Procedure Only (Routine) - Closed Specialty Diagnoses / Procedures Referred By Contac t Referred To Contact [facility] Diagnoses Encounter for screening mammogram for breast cancer Procedures LITO SCREENING SCREENING MAMMOGRAPHY BI 2-VIEW BREAST INC Jama Mary DO [address] [place] [address] [facility] [address] [place] [address] Referral ID Status Reason Start Date Expiration Date V isits Requested Visits Authorized [id number] Closed Auto-Generate d Referral 12/28/2022 01/27/2024 1 1 [facility] Summary Purpose Family History No Family History Records Found Advance Directives No Advanced Directives Records Found Additional Source Comments Source Comments (unrecognize d section and content) In the event this informatio n is protected by the Federal Confidentiality of Alcohol and Drug Abuse Patient Records regulations: The Federal rules restrict any use of the information to criminally investigate or prosecute any alcohol or drug abuse patient.[facility] the event this information is protected by the Federal Confidentiality of Alcohol and Drug Abuse Patient Records regulations: The Federal rules restrict any use of the information to criminally investigate or prosecute any alcohol or drug abuse patient.[facility] the event this information is protected by the Federal Confidentiality of Alcohol and Drug Abuse Patient Records regulations: The Federal rules restrict any use of the information to criminally investigate or prosecute any alcohol or drug abuse patient.[facility] the event this information is protected by the Federal Confidentiality of Alcohol and Drug Abuse Patient Records regulations: The Federal rules restrict any use of the information to criminally investigate or prosecute any alcohol or drug abuse patient.[facility] the event this information is protected by the Federal Confidentiality of Alcohol and Drug Abuse Patient Records regulations: The Federal rules restrict any use of the information to criminally investigate or prosecute any alcohol or drug abuse patient.[facility] Center[facility] the event this information is protected by the Federal Confidentiality of Alcohol and Drug Abuse Patient Records regulations: The Federal rules restrict any use of the information to criminally investigate or prosecute any alcohol or drug abuse patient.[facility] CenterIn the event this information is protected by the Federal Confidentiality of Alcohol and Drug Abuse Patient Records regulations: The Federal rules restrict any use of the information to criminally investigate or prosecute any alcohol or drug abuse patient.[facility] CenterIn the event this information is protected by the Federal Confidentiality of Alcohol and Drug Abuse Patient Records regulations: The Federal rules restrict any use of the information to criminally investigate or prosecute any alcohol or drug abuse patient.[facility] Care Teams (unrecognized sec tion and content) Home Health Rn Relationship Specialty Start Date End Date Jama Loya, DO [address] [facility] [place] [address] PCP - General Family Medicine 09/02/19 Home Health Rn Relationship Specialty Start Date End Date Jama Loya, DO [address] [facility] [place] [address] PCP - General Family Medicine 09/02/19 Home Health Rn Relationship Specialty Start Date End Date Jama Loya, DO [address] [facility] [place] [address] PCP - General Family Medicine 09/02/19 Home Health Rn Relationship Specialty Start Date End Date Jama Loya DO [address] [facility] [place] [address] PCP - General Family Medicine 09/02/19 Home Health Rn Relationship Specialty Start Date End Date Jama Loya DO [address] [facility] [place] [address] PCP - General Family Medicine 09/02/19 Home Health Rn Relationship Specialty Start Date End Date Jama Loya DO [address] [facility] [place] [address] PCP - General Family Medicine 09/02/19 Home Health Rn Relationship Specialty Start Date End Date Jama Loya DO [address] [facility] [place] [address] PCP - General Family Medicine 09/02/19 Reason for Visit (unrecogniz ed section and content) Reason Comments Mammogram Result Call Back Reason Comments Results Reason Onset Date Comments Refill Request 01/27/2023 Reason Onset Date Comments Refill Request 06/10/2023 INFORMATION SOURCE (unrecogn ized section and content) FOR RECORDS PERTAINING TO PATIENTS WHO ARE OR HAVE BEEN ENROLLED IN A CHEMICAL DEPENDENCY/SUBSTANCEABUSE PROGRAM, SOME INFORMATION MAY BE OMITTED. This clinical summary was aggregated from multiple sources. Caution should be exercised in using it in the provision of clinical care. This summary normalizes information from multiple sources, and as a consequence, information in this document may materially change the coding, format and clinical context of patient data. In addition, data may be omitted in some cases. CLINICAL DECISIONS SHOULD BE BASED ON THE PRIMARY CLINICAL RECORDS. [facility], [facility]. provides no warranty or guarantee of the accuracy or completeness of information in this document.
[2023-12-26 21:19] VITALS: BP 158/70; PULSE 73; RESP 19; O2SAT 98
[2023-12-26 22:18] VITALS: BP 146/80; PULSE 72; RESP 16; TEMP 36.2; O2SAT 99
[2023-12-26 22:22] LABS: Reflex Troponin-HS? (from REC) Y
--- NOTE | 2023-12-26 22:52 | EX.ED.DYSGE1 ---
HPI History of Present Illness Chief Complaint: Hypertension Narrative Narrative: 63-year-old female presenting with elevated blood pressures. She states she had a migraine the early part of the day which is typical for her. There is nothing out of the ordinary and she took a couple of doses of ibuprofen today and her headache is slowly had resolved. She noted that her blood pressure was elevated in the 160s to 180s range systolically. She states her headache resolved. No nausea or vomiting. No chest pain or shortness of breath. She states she was concerned about her blood pressure being high and she has a blood pressure cuff but she was not sure if it was completely accurate. She is on lisinopril 20 mg daily and states that her blood pressure was never really that high when she started on it. Patient states she has not any medication changes. She states she went to urgent care and told them that her blood pressure was up a little bit today and she had a headache and they would not see her and sent her to the emergency room. Again patient is asymptomatic currently and her repeat blood pressure was 146/80. [facility] Medical History Anxiety Arthritis Back pain Bladder disease Cardiology follow-up encounter Environmental allergies Heartburn High blood triglycerides High cholesterol History of IBS History of stress test Hx of ovarian cyst Hypertension Hypoglycemia Leg cramps Low iron Migraine headache Non-smoker Post-menopausal Renal calculus Restless legs Wears glasses Home Medications ezetimibe 10 mg tablet 10 mg PO DAILY 10/24/16 [History Last Taken Unknown] lisinopril 20 mg tablet 20 mg PO DAILY 10/24/16 [History Last Taken 06/15/23] cholecalciferol (vitamin D3) 25 mcg (1,000 unit) capsule 25 mcg PO DAILY 02/05/21 [History Last Taken Unknown] omega-3 fatty acids 1,000 mg capsule (Fish Oil Concentrate) 1,000 mg PO DAILY 02/05/21 [History Last Taken Unknown] red yeast rice 600 mg capsule 600 mg PO DAILY 02/05/21 [History Last Taken Unknown] fenofibrate nanocrystallized 48 mg tablet (Tricor) 48 mg PO DAILY 06/08/23 [History Last Taken Unknown] niacin 500 mg tablet 500 mg PO DAILY 06/08/23 [History Last Taken Unknown] vitamin B12 2,500 mcg-folic acid 400 mcg disintegrating tablet 2 tab PO DAILY 06/08/23 [History Last Taken Unknown] oxycodone-acetaminophen 5 mg-325 mg tablet (Percocet) 1 tab PO Q8H PRN pain 3 days #10 tabs 08/03/23 [Rx Last Taken Unknown] Allergy/AdvReac Type Severity Reaction Status Date / Time azithromycin Allergy Other Verified 12/26/23 19:51 [From Zithromax Z-Chris] ciprofloxacin Allergy Other Verified 12/26/23 19:51 Penicillins [PCN] Allergy Hives Verified 12/26/23 19:51 Family History Mother Arthritis Father Arthritis Other Cancer Hypertension Surgical History History of hysterectomy Hx of bladder repair surgery Hx of colonoscopy Hx of total hip arthroplasty Social History Smoking Status: Never smoker alcohol intake: current alcohol intake frequency: a few times a month substance use type: does not use what type of physical activity do you participate in: yoga frequency: 3-4 times per week ROS ROS ED Constitutional Constitutional ED: Denies chills, fever(s) or sweats Eyes Eyes: Denies blurry vision or change in vision ENT ENT ED: Denies ear pain, rhinorrhea or sore throat Cardiovascular Cardiovascular: Denies chest pain, palpitations or racing heartbeat Respiratory/Chest Respiratory/Chest: Denies cough, dyspnea or sputum Gastrointestinal Gastrointestinal: Denies abdominal pain, constipation, diarrhea or vomiting Genitourinary Genitourinary ED: Denies dysuria, hematuria or urinary frequency Musculoskeletal Musculoskeletal: Denies arthralgias, myalgias or neck pain Integumentary Denies abscess, Abrasions or rash Neurologic Neurologic: Reports headache(s); Denies paresthesias or weakness Psychiatric Psychiatric: Denies anxiety, depression, suicidal ideation or suicidal thoughts Endocrine Endocrinology: Denies polydipsia or polyuria EXAM Physical Exam Const Vital Signs: 12/26/23 19:51 12/26/23 19:51 12/26/23 20:51 Temperature 97.2 F L Temperature Source Temporal Pulse Rate 78 Respiratory Rate 16 Respiratory Effort Normal Non-Labored Respiratory Pattern Normal Blood Pressure 212/89 H Blood Pressure Mean 130 Pulse Ox 98 97 Oxygen Delivery Method Room Air Room Air 12/26/23 21:19 12/26/23 22:18 Temperature 97.1 F L Temperature Source Pulse Rate 73 72 Respiratory Rate 19 H 16 Respiratory Effort Respiratory Pattern Blood Pressure 158/70 H 146/80 H Blood Pressure Mean 99 102 Pulse Ox 98 99 Oxygen Delivery Method Room Air Positive well nourished General Appearance ED: NAD; Negative for pallor HEENT Reports moist mucous membranes Eyes PERRL and EOMs intact bilaterally Chest Wall inspection of chest normal Resp normal respiratory effort Auscultation: Negative for rales, rhonchi or wheezes Cardio regular rate and regular rhythm Neuro oriented x3 and CN's II-XII intact bilaterally Sensorium / Orientation: alert Motor Exam: strength 5/5 throughout Psych mental status grossly normal Skin no rashes or lesions noted General Skin Exam: Negative for jaundice or pallor MDM MDM MDM Narrative Medical decision making narrative: Patient presenting with elevated blood pressure. She is completely asymptomatic currently. She states she had a migraine headache earlier this morning which is typical for her there was nothing out of the ordinary. It was not a thunderclap or acute onset headache. Patient feels well currently. She states she went to the urgent care she was concern for blood pressure being high and it would not see her. Here she looks awake and alert no acute distress. No focal neurologic deficits or lateralizing signs or symptoms. Blood pressure has stabilized to 146/80. Screening lab work to assess for endorgan damage is all normal. EKG on my interpretation shows a normal sinus rhythm with a ventricular to 72 bpm without sign ischemic change or ectopy. Chest x-ray my interpretation shows no acute process. Radiologist services and agrees. After extended discussion about hypertension and blood pressure diaries patient is amenable to be discharged home. She states she actually has a follow-up appointment tomorrow already scheduled in the morning. I recommended she make this. Continue all medications as prescribed. Impression: 1. History of migraines 2. High blood pressure Lab Data Labs: Laboratory Results - last 24 hr 12/26/23 20:18 WBC 6.8 RBC 5.16 Hgb 15.0 Hct 46.9 MCV 90.9 MCH 29.1 MCHC 32.0 RDW Std Deviation 40.1 RDW Coeff of Carlos 12.0 Plt Count TNP MPV 12.4 H Immature Gran % (Auto) 0.300 Neut % (Auto) 46.4 L Lymph % (Auto) 43.4 H [place] % (Auto) 7.7 Eos % (Auto) 1.8 Baso % (Auto) 0.4 Absolute Neuts (auto) 3.1 Absolute Lymphs (auto) 2.94 Nucleated RBC % 0 Platelet Estimate SLT DEC RBC Morphology N CHROM Anisocytosis RARE Sodium 141 Potassium 4.1 Chloride 113 H Carbon Dioxide 21.0 Anion Gap 7 BUN 19 H Creatinine 0.87 Estim Creat Clear Calc 68.11 Est GFR (MDRD) Af Amer 84 Est GFR (MDRD) Non-Af 69 BUN/Creatinine Ratio 21.8 H Glucose 98 Calcium 9.3 Troponin I High Sens 9 Radiography Diagnostic Testing: Clinical Impression(s) from Imaging Studies Chest X-Ray 12/26/23 20:18 IMPRESSION: Normal x-ray examination of the chest. Electronically Signed: Flash Lawton MD at 20:27 EST , Discharge Plan Triage Chief Complaint: Hypertension ED Provider: Jonatan Solomon Dx/Rx/DC Orders Instructions: ED Hypertension, Established Prescriptions: No Action cholecalciferol (vitamin D3) 25 mcg (1,000 unit) capsule 25 mcg PO DAILY omega-3 fatty acids [Fish Oil Concentrate] 1,000 mg capsule 1,000 mg PO DAILY red yeast rice 600 mg capsule 600 mg PO DAILY Rx Instructions: give with meal/snack lisinopril 20 MG tablet 20 mg PO DAILY ezetimibe 10 MG tablet 10 mg PO DAILY fenofibrate nanocrystallized [Tricor] 48 mg tablet 48 mg PO DAILY niacin 500 mg tablet 500 mg PO DAILY vitamin Q55-ddxoq acid 2,500-400 mcg tablet,disintegrating 2 tab PO DAILY oxycodone-acetaminophen [Percocet] 5-325 mg tablet 1 tab PO Q8H PRN (Reason: pain) 3 Days Qty: 10 0RF Primary Care Provider: Jama Nascimento Referrals: Jama Nascimento DO [Primary Care Provider] - Disposition Disposition: Home, Self Care Discharge Date/Time: 12/26/23 22:19
== END 2023-12-26 22:19 | disposition home or self-care (01) ==
PROVIDERS: Emergency Provider Student in an Organized Health Care Education/Training Program; PCP Student in an Organized Health Care Education/Training Program; Visit Provider Student in an Organized Health Care Education/Training Program
DX: I10 Essential (primary) hypertension (principal); Z79.899 Other long term (current) drug therapy
CPT/HCPCS: 71045; 80048; 84484; 85025; 93005; 99283; A4216

== ENCOUNTER → 2024-02-12 | Outpatient (CLI) | payer OTHER, SELFPAY ==
[2024-02-12 14:56] LABS: Erythrocyte Sedimentation Rate 5 mm/hr (0-30)
[2024-02-12 15:05] LABS: Prothrombin Time (Protime)PT. 13.6 SECONDS (11.7-14.9)
[2024-02-12 15:54] LABS: CRP < 2.90 mg/L (0.0-3.0); Ferritin 103 ng/mL (8-252); LDH 195 U/L (84-246)
[2024-02-18 12:07] LABS: Anti-Centromere B Ab <0.2 AI (0.0-0.9); Anti-Chromatin <0.2 AI (0.0-0.9); Anti-Jo <0.2 AI (0.0-0.9); Anti-Scleroderma-70 AB <0.2 AI (0.0-0.9); Anti-dsDNA Ab <1 IU/mL (0-9); Beef <0.10 kU/L (Class 0); Chocolate <0.10 kU/L (Class 0); Codfish <0.10 kU/L (Class 0); Corn <0.10 kU/L (Class 0); Cytoplasmic Ab (C-ANCA) <1:20 titer (Neg:<1:20); Egg, Whole <0.10 kU/L (Class 0); Endomysial Antibody IgA Negative (Negative); HEPATITIS B SURFACE AG Negative (Negative); Hep C Antibodies Non Reactive (Non Reactive); Hepatitis A IgM Antibody Negative (Negative); Hepatitis B Core AB IgM Negative (Negative); Immunoglobulin A 121 mg/dL (87-352); Immunoglobulin E 13 IU/mL (6-495); Immunoglobulin G 746 mg/dL (586-1602); Immunoglobulin M 46 mg/dL (26-217); Milk (Cow) <0.10 kU/L (Class 0); Mussels <0.10 kU/L (Class 0); Peanut <0.10 kU/L (Class 0); Perinuclear Ab (P-ANCA) <1:20 titer (Neg:<1:20); Pork <0.10 kU/L (Class 0); RNP Ab 0.2 AI (0.0-0.9); SJOGREN'S Anti-SS-A test < 0.2 AI (0.0-0.9); SJOGREN'S Anti-SS-B test < 0.2 AI (0.0-0.9); Salmon <0.10 kU/L (Class 0); Shrimp <0.10 kU/L (Class 0); Smith Ab <0.2 AI (0.0-0.9); Soybean <0.10 kU/L (Class 0); Tuna <0.10 kU/L (Class 0); Wheat <0.10 kU/L (Class 0); t-Transglutaminase IgA <2 U/mL (0-3)
== END | disposition home or self-care (01) ==
LOC: LAB 13:30
PROVIDERS: PCP Student in an Organized Health Care Education/Training Program; Referring Provider Internal Medicine Gastroenterology; Visit Provider Internal Medicine Gastroenterology
DX: K76.0 Fatty (change of) liver, not elsewhere classified (principal)
CPT/HCPCS: 36415; 80074; 82728; 82784; 82785; 83516; 83615; 85610; 85652; 86003; 86005; 86140; 86225; 86235; 86255; 86256

== ENCOUNTER 2024-03-04 06:31 | Day surgery (SDC) | payer OTHER, SELFPAY ==
[2024-03-04 06:48] VITALS: BP 133/66; PULSE 90; RESP 16; TEMP 36.6; O2SAT 98; BMI 32.1
[2024-03-04] MEDS: Lactated Ringers 1,000 ML 15 ML IV (07:02)
--- NOTE | 2024-03-04 07:23 | HP.PCM_ITS ---
History and Physical Date of Admission: 03/04/24 STEPHY RUBIO, is a 63 F who presents to the office today for initial consult. Pt reports long hx of IBS. Her sx are controlled by diet. Has occasional heartburn r/t diet. BM are generally well. On the looser side. Would like testing for food allergies and fatty liver. ROS Const Constitutional: No fatigue ENT ENT: No difficulty swallowing Gastro GI: Positive for heartburn; No abdominal pain, belching, bloating, change in bowel habits, change in stool character, coffee ground emesis, constipation, cramping, diarrhea, difficulty swallowing, feeling full early, excessive flatus, incontinent of stools, Vomiting blood/hematemesis, Blood in stool, loose stools, Black,tarry stools, nausea/dyspepsia, pain with swallowing, vomiting or other Musc Musculoskeletal: No joint pain Skin Skin: No yellowing of the eye or itchy eyes Psych Psychiatric: No anxiety and No depression Endo Endocrine: No fatigue Aller/Imm Allergy/Immunologic: No itchy eyes Deo/Lymp Hematologic/Lymphatic: No easy bleeding or easy bruising Exam Const General: cooperative and comfortable Nutritional Appearance: average body habitus and well nourished HENMT Head: normal to inspection Ears: hearing grossly normal bilaterally Nose: external nose normal Face and sinus: normal facial exam Mouth: oral mucosae normal Throat: posterior oropharynx normal Eyes General: appearance normal, both eyes and all related structures Neck Neck: normal visual inspection Chest Chest palpation & inspection: normal inspection of the chest and normal pa lpation of entire chest wall Resp Effort & Inspection: normal respiratory effort Auscultation: Bilateral: Clear to Auscultation Cardio Palpation: normal PMI Rate: regular rate Rhythm: regular rhythm GI Inspection: normal to inspection Auscultation: normal bowel sounds Percussion: normal to percussion Palpation: no hepatosplenomegaly Skin General: no rashes or lesions noted Neuro General: patient alert Extrem General: normal to inspection Psych Affect: normal affect Quality Reporting Tobacco Screening ([facility] 138) Smoking Status: Never smoker Assessment and Plan Assessment and Plan (1) Fatty liver: Status: Acute Plan: She will undergo biochemical workup including fib 4 score and also imaging to see if she has any signs or symptoms of fatty liver disease. (2) Encounter for screening colonoscopy: Status: Acute Plan: She will undergo screening colonoscopy. She was explained alternatives, risk, benefits include not withstanding bleeding, infection, sepsis, perforation, need for emergent surgery and . She will have an ASA of 3. Orders: Orders ANCA Today K76.0 - Fatty (change of) liver, not elsewhere classified Celiac Disease Profile Today K76.0 - Fatty (change of) liver, not elsewhere classified Allergen, Food Profile 14 Today K76.0 - Fatty (change of) liver, not elsewhere classified CRP Today K76.0 - Fatty (change of) liver, not elsewhere classified Erythrocyte Sed Rate Today K76.0 - Fatty (change of) liver, not elsewhere classified LDH Today K76.0 - Fatty (change of) liver, not elsewhere classified Immunoglobulin E Today K76.0 - Fatty (change of) liver, not elsewhere classified Immunoglobulin G Today K76.0 - Fatty (change of) liver, not elsewhere classified Immunoglobulin M Today K76.0 - Fatty (change of) liver, not elsewhere classified Prothrombin Time w/INR Today K76.0 - Fatty (change of) liver, not elsewhere classified Hepatitis Panel Acute Today K76.0 - Fatty (change of) liver, not elsewhere classified GREGOR Comprehensive Panel Today K76.0 - Fatty (change of) liver, not elsewhere classified Ferritin Today K76.0 - Fatty (change of) liver, not elsewhere classified ABD Limited w/ Elastography Today K76.0 - Fatty (change of) liver, not elsewhere classified I have examined the patient and the H&P has been reviewed. There are no clinical changes since date of exam.
--- NOTE | 2024-03-04 07:35 | COLBX_PTH ---
PATIENT: STEPHY RUBIO LOC: EN U#:[id number] AGE/SX: 63/F ROOM: RE03/04/[address]: Dr. Layton Willett DO : 1960 BED: DIS: 03/04/2024 SPEC #: [id number] RECD: 03/04/24 10:02 STATUS: DEJAH REJohn #: [id number] JANET: 03/04/24 07:[address]: Layton Willett DEPT: SURGICAL PATHOLOGY RECD BY: Yissel Galeas ENTERED: 03/04/24 10:59 SP TYPE: COLON BX OTHR DR: Dr. Jama Nascimento DO Tissues: Cecum, NOS Procedures: Surgery Specimen Level IV HEADER OPERATION: Colonoscopy with biopsy PRE-OP DIAGNOSIS: Fatty liver, encounter for screening colonoscopy TISSUE SUBMITTED: Cecum polyp biopsy MICROSCOPIC DIAGNOSIS Cecum polyp, biopsy: Fragments of tubular adenoma. EDUARDO/mr 03/05/2024 MICROSCOPIC DESCRIPTION Slides are reviewed. GROSS DESCRIPTION Received in fixative is one container labeled with the patient's name and designated Cecum polyp biopsy. The specimen consists of two irregular fragments of light abdalla soft tissue that in aggregate measure 0.6 x 0.3 x 0.1 cm. The specimen is totally submitted in one cassette. EDUARDO/ 03/04/2024 TC:1 CPT:01282
[2024-03-04 08:06] VITALS: BP 133/66; BP 96/59; PULSE 72; RESP 16; TEMP 36.1; O2SAT 100
--- NOTE | 2024-03-04 08:08 | OP.CCLET_ITS ---
03/04/2024 Jama Nascimento [address] [place] [address] Re : Colonoscopy procedure for Halie Hutchins Dear Dr. Nascimento This procedure was performed on Monday, March 04, 2024. My impressions and recommendations are as follows: Impressions : - Diverticulosis in the recto-sigmoid colon, in the sigmoid colon and in the descending colon. - Two 6 mm polyps in the cecum, removed with a cold biopsy forceps. Resected and retrieved. Recommendations : - Repeat colonoscopy in 5 years for surveillance. - Continue present medications. My findings are described in the full procedure note, which is enclosed. If I can be of further assistance, please feel free to contact me at . Sincerely, Layton Willett, 03/04/2024 8:07:45 AM This report has been signed electronically.
--- NOTE | 2024-03-04 08:08 | OP.COLON_ITS ---
Patient Name: Halie Hutchins Procedure Date: 03/04/2024 7:33 AM Date of : 1960 Age: 63 Procedure: Colonoscopy Indications: Screening for colorectal malignant neoplasm Providers: Layton Willett DO Referring MD: Jama Nascimento Medicines: Monitored Anesthesia Care Patient Profile: This is a 63 year old female. Refer to note in patient chart for documentation of history and physical. Last Colonoscopy: date unknown. Unable to locate last colonoscopy report. Complications: No immediate complications. Procedure: Pre-Anesthesia Assessment: - Prior to the procedure, a History and Physical was performed, and patient medications and allergies were reviewed. The risks and benefits of the procedure and the sedation options and risks were discussed with the patient. All questions were answered and informed consent was obtained. Patient identification and proposed procedure were verified by the physician in the pre-procedure area. Mental Status Examination: alert and oriented. Airway Examination: normal oropharyngeal airway and neck mobility. CV Examination: normal. Prophylactic Antibiotics: The patient does not require prophylactic antibiotics. Prior Anticoagulants: The patient has taken no anticoagulant or antiplatelet agents. ASA Grade Assessment: II - A patient with mild systemic disease. After reviewing the risks and benefits, the patient was deemed in satisfactory condition to undergo the procedure. The anesthesia plan was to use monitored anesthesia care (MAC). Immediately prior to administration of medications, the patient was re-assessed for adequacy to receive sedatives. The heart rate, respiratory rate, oxygen saturations, blood pressure, adequacy of pulmonary ventilation, and response to care were monitored throughout the procedure. The physical status of the patient was re-assessed after the procedure. After I obtained informed consent, the scope was passed under direct vision. Throughout the procedure, the patient's blood pressure, pulse, and oxygen saturations were monitored continuously. The Colonoscope was introduced through the anus and advanced to the ileocecal valve. The colonoscopy was performed without difficulty. The patient tolerated the procedure well. The quality of the bowel preparation was good. Scope In: 7:39:42 AM Scope Withdrawal Time 0 hours 16 minutes 31 seconds Scope Out: 8:01:01 AM Total Procedure Duration Time 0 hours 21 minutes 19 seconds Findings: The perianal and digital rectal examinations were normal. Multiple small and large-mouthed diverticula were found in the recto-sigmoid colon, sigmoid colon and descending colon. Two polyps were found in the cecum. The polyps were 6 mm in size. These polyps were removed with a cold biopsy forceps. Resection and retrieval were complete. Verification of patient identification for the specimen was done. Estimated blood loss was minimal. Impression: - Diverticulosis in the recto-sigmoid colon, in the sigmoid colon and in the descending colon. - Two 6 mm polyps in the cecum, removed with a cold biopsy forceps. Resected and retrieved. Recommendation: - Repeat colonoscopy in 5 years for surveillance. - Continue present medications. Procedure Code(s): --- Professional --- 50905, Colonoscopy, flexible; with biopsy, single or multiple CPT copyright 2021 [employer]. All rights reserved. The codes documented in this report are preliminary and upon mixer operator hot metal review may be revised to meet current compliance requirements. Layton Willett DO 03/04/2024 8:07:45 AM This report has been signed electronically. Number of Addenda: 0 Note Initiated On: 03/04/2024 7:33 AM
[2024-03-04 08:10] VITALS: BP 105/47; BP 133/66; PULSE 72; RESP 14; O2SAT 99
[2024-03-04 08:15] VITALS: BP 113/47; BP 133/66; PULSE 67; RESP 14; O2SAT 100
[2024-03-04 08:20] VITALS: BP 109/45; BP 133/66; PULSE 63; RESP 14; TEMP 36.1; O2SAT 100
[2024-03-04 08:32] VITALS: BP 133/66
== END 2024-03-04 08:54 | disposition home or self-care (01) ==
LOC: EN 06:31 → AC 06:33
PROVIDERS: PCP Student in an Organized Health Care Education/Training Program; Referring Provider Student in an Organized Health Care Education/Training Program; Visit Provider Internal Medicine Gastroenterology
PROC: 0DJD8ZZ Inspection of Lower Intestinal Tract, Via Natural or Artificial Opening Endoscopic (ICD-10-PCS; CPT 45378; principal; 2024-03-04 07:30)
DX: Z12.11 Encounter for screening for malignant neoplasm of colon (principal); K57.30 Diverticulosis of large intestine without perforation or abscess without bleeding; D12.0 Benign neoplasm of cecum; I10 Essential (primary) hypertension; E78.00 Pure hypercholesterolemia, unspecified; E78.1 Pure hyperglyceridemia; Z79.899 Other long term (current) drug therapy
CPT/HCPCS: 45380; 88305; J7120; J2405

== ENCOUNTER → 2024-04-09 | Outpatient (CLI) | payer OTHER, SELFPAY ==
[2024-03-18 08:21] LABS: Absolute Lymphocyte Count 2.02 X10^3/uL (0.83-4.51); Absolute Neutrophil Count 5.3 X10^3/uL (2.0-7.7); Basophil# 0.05 X10^3/uL; Basophil% 0.6 % (0-1); Eosinophil# 0.17 X10^3/uL; Eosinophils% 2.1 % (0-5); Hematocrit 46.2 % (37-47); Hemoglobin 14.8 g/dL (12.0-15.0); Lymphocyte # 2.02 X10^3/ul (0.83-4.51); Lymphocyte % 24.8 % (19-41); Mean Corpuscular Hgb 28.7 pg (27.0-32.0); Mean Corpuscular Volume 89.7 fL (81-99); Mean Platelet Vol. 11.3 fl (6.2-12.0); Monocyte# 0.61 X10^3/uL; Monocyte% 7.5 % (0-10); NRBC Flagged by Analyzer 0 % (0-5); Neutrophil # 5.26 X10^3/uL (2.7-7.7); Neutrophil % 64.8 % (47-70); Platelet Count 235 K/mm3 (150-450); RBC Distribution Width CV 12.1 % (11.6-14.6); RBC Distribution Width SD 39.6 fl (35.1-43.9); Red Blood Count 5.15 M/mm3 (4.2-5.4); White Blood Count 8.1 K/mm3 (4.4-11.0)
[2024-03-18 08:49] LABS: Anion Gap 5 (5-15); BUN 18 mg/dL (7-18); Calcium,Total 9.3 mg/dL (8.5-10.1); Chloride 112 mmol/L (98-107); EST Glomerular Filtration Rate 67 mL/min (>60); Est Glom Filt Rate - Afr Amer 81 mL/min (>60); Glucose 116 mg/dL (74-106); Potassium 3.7 mmol/L (3.5-5.1); Sodium Level 141 mmol/L (136-145)
--- NOTE | 2024-04-09 10:49 | EKG12_ITS ---
Test Reason : PRE OP Blood Pressure : / mmHG Vent. Rate : 099 BPM Atrial Rate : 099 BPM P-R Int : 154 ms QRS Dur : 090 ms QT Int : 354 ms P-R-T Axes : 042 -15 017 degrees QTc Int : 454 ms Normal sinus rhythm Normal ECG Confirmed by SABAS GALVEZ, DANIELLE ([id number]), index editor CHONG DENNY ([id number]) on 04/11/2024 6:22:14 AM Referred By: Raghavendra Gongora Confirmed By:GODWIN OBREGON MD
== END | disposition home or self-care (01) ==
LOC: PSN 10:46
PROVIDERS: PCP Student in an Organized Health Care Education/Training Program; Referring Provider Orthopaedic Surgery; Visit Provider Orthopaedic Surgery
DX: Z01.818 Encounter for other preprocedural examination (principal); M16.12 Unilateral primary osteoarthritis, left hip; Z01.810 Encounter for preprocedural cardiovascular examination; Z01.811 Encounter for preprocedural respiratory examination; I10 Essential (primary) hypertension; E78.00 Pure hypercholesterolemia, unspecified; Z79.899 Other long term (current) drug therapy
CPT/HCPCS: 36415; 80048; 85025; 93005

== ENCOUNTER → 2024-04-12 | Outpatient (CLI) | payer OTHER, SELFPAY ==
--- NOTE | 2024-04-12 | HIP_PTH ---
PATIENT: STEPHY RUBIO LOC: [facility] U#:[id number] AGE/SX: 63/F ROOM: RE04/12/[address]: Dr. Raghavendra Gongora MD : 1960 BED: DIS: 04/12/2024 SPEC #: [id number] RECD: 04/12/24 15:33 STATUS: DEJAH REJohn #: [id number] JANET: 04/12/24 00:[address]: aRghavendra Gongora DEPT: SURGICAL PATHOLOGY RECD BY: Genesis Blair ENTERED: 04/15/24 08:01 SP TYPE: TOTAL HIP OTHR DR: Dr. Jama Nascimento, [facility] Tissues: Hip, NOS Procedures: Decalcification bone/plaque Surgery Specimen Level IV HEADER OPERATION: Left total hip arthroplasty PRE-OP DIAGNOSIS: Left hip grade 4 primary osteoarthritis TISSUE SUBMITTED: Left hip- bone and tissue MICROSCOPIC DIAGNOSIS Bone and tissue of left hip, total hip resection: Severe degenerative joint disease. Mild synovial hyperplasia. AM: 04/18/24 MICROSCOPIC DESCRIPTION Slides are reviewed. GROSS DESCRIPTION Received is one container labeled with the patient's name and designated bone and soft tissue left hip. The specimen consists of a abdalla femoral head (with portion of femoral neck). The femoral head measures 5.0 x 4.5 x 4.5 cm (and the femoral neck measures 1.0 cm in length.) The articular surface displays prominent osteophyte formation, eburnation and bone erosion. Also present in the specimen container are multiple irregular fragments of bone reamings and pink-yellow soft tissue measuring in aggregate 8.0 x 8.0 x 2.5 cm. Silk Snapper sections are submitted in two cassettes as follows: 1 - soft tissue, 2 - bone after decalcification. EDUARDO/ 04/15/2024 TC:5 CPT: 64764, 35423
== END | disposition home or self-care (01) ==
LOC: LABSPEC 16:00
PROVIDERS: PCP Student in an Organized Health Care Education/Training Program; Referring Provider Orthopaedic Surgery; Visit Provider Orthopaedic Surgery
DX: M16.12 Unilateral primary osteoarthritis, left hip (principal)
CPT/HCPCS: 88305; 88311

== ENCOUNTER → 2024-07-01 | Outpatient (CLI) | payer OTHER, SELFPAY ==
--- NOTE | 2024-07-01 07:02 | US_ITS ---
STUDY: ABDOMINAL ULTRASOUND - RIGHT UPPER QUADRANT; ELASTOGRAPHY REASON FOR VISIT: Female, 64 years old. Fatty infiltration of the liver. Hepatic cyst. TECHNIQUE: Ultrasound evaluation of the right upper quadrant was performed with real-time and static wilkins-scale imaging. Point quantification shear wave elastography was performed ([place]). TECHNICAL QUALITY: Adequate. COMPARISON: None. FINDINGS: Liver: The liver measures 14.9 cm. There is increased echogenicity consistent with fatty infiltration. The bile ducts are within normal limits. There is hepatic color flow. The direction of portal flow is hepatopetal. There is no demonstrated mass lesion. Median liver stiffness measured 8.4 kPa. Gallbladder: Normal distended gallbladder. The gallbladder wall measures 3.0 mm. There is a negative sonographic Capellan''s sign. There is no pericholecystic fluid. There are no gallstones. Common Bile Duct (C.B.D.): The common bile duct measures 4.0 mm. Pancreas: There is normal echogenicity of the visualized pancreas. There is no demonstrated pancreatic mass or cyst. Right Kidney: Normal size of the right kidney. The right kidney measures 10.6 cm x 5.2 cm x 5.2 cm. Normal renal cortex. The right cortex measures 1. cm. There is no demonstrated renal mass or cyst. There is no right hydronephrosis. US/ABD Limited w/ Elastography IMPRESSION: 1. Liver stiffness measures 8.4 kPa compatible with F2-F3 (Mild to moderate liver fibrosis) Metavir score. 2. Fatty infiltration of the liver. Electronically Signed: Osmany Unger MD at 15:27 EDT ,
== END | disposition home or self-care (01) ==
LOC: US 07:02
PROVIDERS: PCP Student in an Organized Health Care Education/Training Program; Referring Provider Internal Medicine Gastroenterology; Visit Provider Internal Medicine Gastroenterology
DX: K76.0 Fatty (change of) liver, not elsewhere classified (principal); K76.89 Other specified diseases of liver
CPT/HCPCS: 76705; 76981

== ENCOUNTER → 2024-12-23 | Outpatient (CLI) | payer OTHER, SELFPAY ==
--- NOTE | 2024-12-23 14:41 | RAD_ITS ---
PROCEDURE: ABDOMEN SINGLE VIEW REASON FOR EXAM: Stones. TECHNIQUE: Two-view supine. COMPARISON: Abdomen study of 08/29/2023. RAD/Abdomen Single View IMPRESSION: Prominent degenerative changes of the spine along with lumbar levoscoliosis aga in noted. Partially visualized bilateral hip prostheses show no complication. Mild sacroiliac joint degenerative changes are noted. The bowel-gas pattern is unremarkable multiple small calculi are seen throughou t the left mid to lower kidney, somewhat more conspicuous than on prior study, but fairly similar overall. No definite right renal calculus is seen. Evaluation is limited by overlying stool, however. Reading Location: [id number]
== END | disposition home or self-care (01) ==
LOC: MTRAD 14:39
PROVIDERS: PCP Student in an Organized Health Care Education/Training Program; Referring Provider Urology; Visit Provider Urology
DX: N20.0 Calculus of kidney (principal)
CPT/HCPCS: 74018

== ENCOUNTER → 2025-01-02 | Outpatient (CLI) | payer OTHER, SELFPAY ==
--- NOTE | 2025-01-02 07:15 | US_ITS ---
PROCEDURE: ABD LIMITED W/ ELASTOGRAPHY REASON FOR EXAM: Fatty infiltration of the liver. COMPARISON: Comparison is made with prior study dated July 01, 2024. TECHNIQUE: Right upper quadrant abdominal ultrasound. [employer] ElastQ Imaging shear wave elastography for non-invasive assessment of liver tissue stiffness. [employer] EPIQ Elite. FINDINGS: LIVER: Size: Unremarkable Length: 13.9 cm Echotexture: Diffusely echogenic suggesting fatty infiltration Contour: Normal Lesions: There is a 2 cm x 2 cm x 1.5 cm cyst in the dome of the right lobe of the liver. Elastography: EQI Med: 7.6 kPa EQI Med Nick: 1.58 m/s IQR/Med: 19 %* GALLBLADDER: Normal COMMON BILE DUCT: Normal . PANCREAS: Normal Visualized portions of the right kidney are unremarkable. No right upper quadrant ascites. US/ABD Limited w/ Elastography IMPRESSION: NO TO MILD HEPATIC FIBROSIS Reference Values: SRU <1.37 m/s (5.7kPa): No to mild fibrosis 1.37 m/s - 2.2 m/s: Moderate to severe fibrosis >2.2 m/s (15kPa): Significant fibrosis / cirrhosis METAVIR Score F2 or higher: 1.34 m/s (5.7kPa) F3 or higher: 1.55 m/s (7.3kPa) F4: 1.80 m/s (10kPa) * If the IQR/Med is >30%, the variance in the measurements is a large and the a ccuracy of the measurement may be in question. Reading Location: [id number]
== END | disposition home or self-care (01) ==
PROVIDERS: PCP Student in an Organized Health Care Education/Training Program; Referring Provider Internal Medicine Gastroenterology; Visit Provider Internal Medicine Gastroenterology
DX: K76.0 Fatty (change of) liver, not elsewhere classified (principal)
CPT/HCPCS: 76705; 76981

== ENCOUNTER → 2025-06-24 | Outpatient (CLI) | payer MEDICARE, OTHER, SELFPAY ==
--- NOTE | 2025-06-24 08:49 | RAD_ITS ---
PROCEDURE: KUB. 06/24/2025 REASON FOR EXAM: KUB- STONES TECHNIQUE: ABDOMEN SINGLE VIEW COMPARISON: KUB, 12/23/2024. FINDINGS: There is a nonobstructive bowel gas pattern. There are numerous tiny calcifications projected over the left renal outline. There are no calcific densities projected over the right renal outline or along the path of either ureter. There is moderate levoscoliosis of the lumbar spine. There are bilateral total hip arthroplasties. RAD/Abdomen Single View IMPRESSION: Left nephrolithiasis, not significantly changed. Other findings as noted. Reading Location: [place] [id number]
== END | disposition home or self-care (01) ==
LOC: MTRAD 08:46
PROVIDERS: PCP Student in an Organized Health Care Education/Training Program; Referring Provider Urology; Visit Provider Urology
DX: N20.0 Calculus of kidney (principal)
CPT/HCPCS: 74018